=== PATIENT | female | born 1955 | race African-American/Black ===

== ENCOUNTER → 2017-01-12 | Outpatient (CLI) | payer BC ==
[~2017-01-12] MED LIST: BIOT1CAP3 PO; CYAN10005 PO; DICY10CA55 PO; FESO8TAB PO; GLC500 PO; INSUINJ SC; IRON PILL PO; LIRA18IN PO; LUTE1CAP9 PO; MAGN250T3 PO; MULT-506 PO; OLME1TAB11 PO; OMEG10007 PO; OXYC7.5T78 PO; VITA400C15 PO
--- NOTE | 2017-01-12 11:00 | DIAGNOSTIC IMAGING REPORT ---
THYROID ULTRASOUND CLINICAL HISTORY: Lump on neck. COMPARISON STUDY: None. TECHNIQUE: Sonography of the thyroid gland was performed. FINDINGS: The right thyroid lobe measures 5.1 x 1.6 x 1.4 cm and the left lobe measures 5.1 x 1.5 x 1.5 cm. There are no nodules within the right thyroid lobe. Two hypoechoic cystic left lobe nodules measure up to 0.8 cm. The largest is within the midpole. These are likely benign. No mass or enlarged lymph node was identified within the adjacent soft tissues. IMPRESSION: 1. Two subcentimeter left lobe thyroid nodules measuring up to 0.8 cm. While technically indeterminate, these have benign imaging characteristics. 2. No mass or enlarged lymph node within the soft tissues adjacent to the thyroid gland. Electronically signed by: Amrit Beltre M.D. 01/12/2017 10:59 AM Dictated Date/Time: 01/12/2017 10:56 AM
== END | disposition home or self-care (01) ==
LOC: C.ULTRBC 10:05
PROVIDERS: ATTEND Internal Medicine
DX: R22.1 Localized swelling, mass and lump, neck (principal); E04.1 Nontoxic single thyroid nodule

== ENCOUNTER → 2017-02-06 | Outpatient (CLI) | payer BC ==
--- NOTE | 2017-02-06 14:02 | DIAGNOSTIC IMAGING REPORT ---
AP STANDING VIEW OF BOTH KNEES; 3 VIEWS RIGHT KNEE CLINICAL HISTORY: Chronic right knee pain. FINDINGS: An AP standing view of both knees with crosstable lateral, tunnel, and sunrise views of the right knee are compared to study dated 02/09/2015. The skeletal structures are osteopenic. No fracture is seen. There is moderate tricompartmental degenerative joint space narrowing, greatest in the medial and patellofemoral compartments. There are marginal osteophytes, degenerative beaking of the tibial spine, and patellar enthesophytes. No evidence of osteochondral defect is seen on the tunnel view. A calcified fabella is incidentally noted. No joint effusion is seen. The overlying soft tissues are within normal limits. Survey images of the left knee on the frontal view show mild to moderate degenerative narrowing in the medial compartment and small marginal osteophytes. IMPRESSION: Osteopenia and degenerative change as above. No acute bony abnormality is seen in the right knee. Electronically signed by: Chauncey Hsieh M.D. 02/06/2017 2:01 PM Dictated Date/Time: 02/06/2017 1:59 PM
== END | disposition home or self-care (01) ==
LOC: C.RDSM 13:50
PROVIDERS: ATTEND Physical Medicine & Rehabilitation Sports Medicine
DX: M85.861 Other specified disorders of bone density and structure, right lower leg (principal)

== ENCOUNTER → 2017-03-27 | Outpatient (CLI) | payer BC ==
[~2017-03-27] MED LIST changes: +DICL1GEL12 EXT; +INSHNI SC; +LIRA18IN SC; +LOSA1TAB38 PO; +METF-384 PO; +NF656 EXT; +OXYC-59 PO; +OXYC-643 PO; +ZNTT/150 PO
--- NOTE | 2017-03-27 14:12 | DIAGNOSTIC IMAGING REPORT ---
AP STANDING VIEW OF BOTH KNEES; 3 VIEWS RIGHT KNEE CLINICAL HISTORY: Right knee pain and swelling. FINDINGS: An AP standing view of both knees with crosstable lateral, tunnel, and sunrise views of the right knee are compared to study dated 02/06/2017. The skeletal structures are osteopenic. No fracture is seen. There is moderate tricompartmental degenerative joint space narrowing, greatest in the medial and patellofemoral compartments. There are marginal osteophytes, degenerative beaking of the tibial spine, and patellar enthesophytes. No evidence of osteochondral defect is seen on the tunnel view. A calcified fabella is incidentally noted. No joint effusion is seen. The overlying soft tissues are within normal limits. Survey images of the left knee on the frontal view show mild to moderate degenerative narrowing in the medial compartment and small marginal osteophytes. IMPRESSION: Osteopenia and degenerative change as above. No acute bony abnormality is seen in the right knee and there has been no significant change from 02/06/2017. Electronically signed by: Chauncey Hsieh M.D. 03/27/2017 2:11 PM Dictated Date/Time: 03/27/2017 2:09 PM
== END | disposition home or self-care (01) ==
LOC: C.RDSM 13:30
PROVIDERS: ATTEND Physician Assistant
DX: R52 Pain, unspecified (principal)

== ENCOUNTER → 2017-08-28 | Outpatient (CLI) | payer BC ==
[~2017-08-28] MED LIST changes: -DICL1GEL12 EXT; -INSHNI SC; -LIRA18IN SC; -LOSA1TAB38 PO; -METF-384 PO; -NF656 EXT; -OXYC-59 PO; -OXYC-643 PO; -ZNTT/150 PO
--- NOTE | 2017-08-28 15:46 | MAMMOGRAPHY REPORT ---
BILATERAL DIGITAL SCREENING MAMMOGRAM WITH CAD: 08/28/2017 CLINICAL HISTORY: Routine screening. Patient has no complaints. TECHNIQUE: Current study was also evaluated with a Computer Aided Detection (CAD) system. Bilateral CC and MLO views were obtained. COMPARISON: Comparison is made to exams dated: 08/22/2016 mammogram, 08/20/2015 mammogram, 07/21/2014 m ammogram, 07/07/2013 mammogram, 07/05/2012 mammogram, and 07/03/2011 mammogram - [facility]. BREAST COMPOSITION: The tissue of both breasts is almost entirely fatty. FINDINGS: No suspicious masses, calcifications, or areas of architectural distortion are noted in ei ther breast. There has been no significant interval change compared to prior exams. IMPRESSION: ACR BI-RADS CATEGORY 1: NEGATIVE There is no mammographic evidence of malignancy. A 1 year screening mammogram is recommended. The pa tient will receive written notification of the results. Approximately 10% of breast cancers are not detected with mammography. A negative mammographic report should not delay biopsy if a clinically suggestive mass is present. Natalie Haque M.D. ah/:08/28/2017 10:30:36 Search Engine Marketing Strategist: Anamaira NATHR, M, [facility] letter sent: Normal 1/2 BI-RADS Code: ACR BI-RADS Category 1: Negative
== END | disposition home or self-care (01) ==
LOC: C.MAMM 10:07
PROVIDERS: ATTEND Internal Medicine
DX: Z12.31 Encounter for screening mammogram for malignant neoplasm of breast (principal)

== ENCOUNTER → 2017-09-07 | Outpatient (CLI) | payer BC | END | disposition home or self-care (01) | LOC: C.RDSM 13:22 | PROVIDERS: ATTEND Physical Medicine & Rehabilitation Sports Medicine | DX: M25.531 Pain in right wrist (principal) ==

== ENCOUNTER → 2017-11-11 | Day surgery (SDC) | payer BC ==
[2017-10-12 11:43] VITALS: Ht 177.8 cm; Wt 154.6 kg
[~2017-11-11] VITALS: Ht 177.8 cm; Wt 154.6 kg
[~2017-11-11] MED LIST changes: -BIOT1CAP3 PO; +BUPIVACAINE 0.25% 2.5MG/ML PF 10 ML VIAL ONE; -CYAN10005 PO; +DICL1GEL12 EXT; -DICY10CA55 PO; -FESO8TAB PO; -GLC500 PO; +INSHNI SC; -INSUINJ SC; -IRON PILL PO; +LIDOCAINE HCL 1% MPF 5 ML VIAL ONE; -LIRA18IN PO; +LIRA18IN SC; +LOSA1TAB38 PO; -LUTE1CAP9 PO; -MAGN250T3 PO; +METF-384 PO; -MULT-506 PO; +NF656 EXT; -OLME1TAB11 PO; -OMEG10007 PO; +OXYC-59 PO; +OXYC-643 PO; -OXYC7.5T78 PO; -VITA400C15 PO; +ZNTT/150 PO
--- NOTE | 2017-11-11 12:38 | History & Physical Bridge - SC ---
H&P Re-Evaluation Bridge Note: I have examined the patient, reviewed the History & Physical and in the interval since the performance of the History & Physical I have noted the following changes of clinical significance: No changes noted
--- NOTE | 2017-11-11 13:12 | Discharge Instructions ---
Discharge Instructions Date of Service Nov 11, 2017. Visit Reason for Visit: Low Back Pain Discharge Discharge Diagnosis / Problem: low back pain Discharge Goals Goal(s): Decrease discomfort, Improve function Activity Recommendations Activity Limitations: resume your previous activity Anesthesia . Post Anesthesia Instructions: If you have had General Anesthesia or IV Sedation: * Do not drive today. * Resume driving when surgeon permits. * Do not make important decisions or sign legal documents today. * Call surgeon for: 1. Temperature elevations greater than 101 degrees F. 2. Uncontrollable pain. 3. Excessive bleeding. 4. Persistent nausea and vomiting. 5. Medication intolerance (nausea, vomiting or rash). * For nausea and vomiting use only clear liquids such as: tea, soda, bouillon until nausea subsides, then gradually increase diet as tolerated. * If you have any concerns or questions, call your surgeon's office. If physician is unavailable and it is an emergency, call 911 or go to the nearest emergency room. . Diet Recommendations Recommended Home Diet: resume previous diet Procedures Procedures Performed: Right L4-5, L5-S1 Medial Branch Blocks Pending Studies Studies pending at discharge: no Medical Emergencies . Who to Call and When: Medical Emergencies: If at any time you feel your situation is an emergency, please call 911 immediately. . Non-Emergent Contact Non-Emergency issues call your: Specialist . . "Provider Documentation" section prepared by Joseph López. .
[2017-11-11 13:21] VITALS: BP 117/81; PULSE 86; O2SAT 97
--- NOTE | 2017-11-11 14:07 | OPERATIVE REPORT ---
DATE OF OPERATION: 11/11/2017 PREOPERATIVE DIAGNOSES: Chronic low back pain and lumbar facet arthropathy. POSTOPERATIVE DIAGNOSES: Same. PROCEDURE: Right L4-L5 and L5-S1 medial branch facet blocks. INDICATIONS: The patient is a 62-year-old -[place] female who presents today for medial branch blocks. She has chronic low back pain that is localizing to the facet joints. These are felt to be the pain generators and she proceeds with a diagnostic block to determine if indeed this does alleviate or eliminate her pain for an anticipated period of time. PHYSICAL EXAMINATION: Pleasant female seated comfortably. She has point tenderness to palpation on the right side at the L4-L5 and L5-S1 facet region. This is worse with extension and rotation and relieved with forward flexion to the opposite side. She is without any motor or sensory deficits of her lower extremities. CONSENT: Verbal and written consent was obtained from the patient. Risks and benefits were reviewed. Risks include, but are not limited to abscess and allergic reaction. The patient wishes to proceed. DESCRIPTION OF PROCEDURE: The patient was taken back to the special procedures room of the [facility], where she was maintained in a prone position. Backside was cleansed with Betadine x3 and a dry sterile dressing was applied. Fluoroscope was used to identify the right L4 transverse process junction, the right L5 transverse process junction and the right sacral ala. Overlying skin was then anesthetized with 1.5 mL of lidocaine 1% with total 25-gauge 1-1/2 inch needle at each site. A 22-gauge 5-cm spinal needle was then directed at each target, contacting bone at each site and then being injected with 1 mL of 0.25% bupivacaine at each site. Injection was well tolerated. DISPOSITION: 1. The patient was taken out into the discharge recovery area, where she will be discharged home once discharge criteria have been met. 2. Follow up in the [facility] office in 4 weeks' time. She has been asked to keep a pain diary for the next 48 hours to determine how effective the blocks were and far how along. I attest to the content of the Intraoperative Record and any orders documented therein. Any exception s are noted below.
== END | disposition home or self-care (01) ==
LOC: X.SURG 12:14
PROVIDERS: ATTEND Physical Medicine & Rehabilitation
DX: M54.5 Low back pain (principal); G89.29 Other chronic pain; M46.96 Unspecified inflammatory spondylopathy, lumbar region; Z79.899 Other long term (current) drug therapy

== ENCOUNTER → 2017-11-12 | Outpatient (CLI) | payer BC ==
[~2017-11-12] MED LIST changes: -BUPIVACAINE 0.25% 2.5MG/ML PF 10 ML VIAL ONE; -LIDOCAINE HCL 1% MPF 5 ML VIAL ONE; +OPTIRAY 320 IV PRN
--- NOTE | 2017-11-12 12:04 | DIAGNOSTIC IMAGING REPORT ---
CT ABD/PELVIS IV AND ORAL CONT CLINICAL HISTORY: R10.9 MID ABDOMINAL PAIN. DIARRHEA. FAMILY HISTORY OF PANCREATIC CARCINOMA. COMPARISON STUDY: 08/31/2015 TECHNIQUE: Following the IV administration of 93 mL of Optiray-320, CT scan of the abdomen and pelvis was performed from the lung bases to the proximal femurs. Images are reviewed in the axial, sagittal, and coronal planes. IV contrast was administered without complication. A dose lowering technique was utilized adhering to the principles of ALARA. CT DOSE: 1663.76 mGy.cm FINDINGS: Lower chest: The heart is normal in size and configuration, without pericardial effusion. The lung bases and pleural spaces are clear. Liver: There is hepatic steatosis. No focal masses are visualized. Gallbladder: Unremarkable. Spleen: Normal in size and attenuation. Pancreas: Unremarkable. Adrenal glands: Unremarkable. Kidneys: There is symmetric renal cortical enhancement. The kidneys are normal in size without hydronephrosis. Bowel: There are no transition zones indicate bowel obstruction. There is colonic diverticulosis. No acute peridiverticular inflammatory changes are visualized. The appendix appears normal. Peritoneum: There is no intraperitoneal free air or abdominal ascites. Vasculature: The abdominal aorta is normal in course and caliber. Adenopathy: None. Pelvic viscera: The uterus is surgically absent Skeletal structures: No destructive osseous lesions are seen. IMPRESSION: 1. Hepatic steatosis 2. Surgically absent uterus 3. No evidence of bowel obstruction. No evidence of free air 4. No evidence of acute appendicitis. No evidence of acute diverticulitis. 5. No acute inflammatory changes Electronically signed by: Bayron Rao M.D. 11/12/2017 12:03 PM Dictated Date/Time: 11/12/2017 12:00 PM
== END | disposition home or self-care (01) ==
LOC: C.CTS 09:28
PROVIDERS: ATTEND Internal Medicine Gastroenterology
DX: R10.9 Unspecified abdominal pain (principal); K76.0 Fatty (change of) liver, not elsewhere classified; Z90.711 Acquired absence of uterus with remaining cervical stump

== ENCOUNTER → 2017-12-07 | Day surgery (SDC) | payer BC, OTHER ==
[~2017-12-07] VITALS: Ht 177.8 cm; Wt 150.0 kg
[~2017-12-07] MED LIST changes: +ALBU18002 INH; +BIOT1CAP8 PO; +LUTE15CA PO; +MAGNESIUM PO; +MULT-506 PO; -OPTIRAY 320 IV PRN; -OXYC-643 PO; +PRLSR20 PO; +TAMS0.4C38 PO; +VITAMIN B12 PO; +VITAMIN C PO; +VITAMIN E PO; -ZNTT/150 PO
[2017-12-07 08:01] VITALS: BP 137/72; PULSE 92; TEMP 36.8; O2SAT 99; Ht 177.8 cm; Wt 150.0 kg
--- NOTE | 2017-12-09 14:46 | OPERATIVE REPORT ---
DATE OF OPERATION: 12/07/2017 PROCEDURE: Hydrogen breath test for small bowel bacterial overgrowth performed on December 07. DESCRIPTION OF PROCEDURE: The patient presented to the hospital for breath test to determine if she has small bowel bacterial overgrowth. The patient's baseline hydrogen was 0 with a CO2 level of 4.8. The CO2 level remained in the 5 range throughout the duration of the procedure. She was given 10 grams of lactulose. Her 20-minute hydrogen level was 3, 40 minutes was 8, 60 minutes was 15, 80 minutes 19, 100 minutes 28, 120 minutes 33, 140 minutes 51. At this point, she was getting some cramping sensation. IMPRESSION: The patient's hydrogen levels torrie steadily during the course of the procedure. There was no elevation in her baseline prior to taking the lactulose. The elevated hydrogen levels later on and associated symptoms are more consistent with the lactulose intolerance rather than small bowel bacterial overgrowth syndrome. I attest to the content of the Intraoperative Record and any orders documented therein. Any exception s are noted below.
== END | disposition home or self-care (01) ==
LOC: C.MTU 07:53
PROVIDERS: ATTEND Internal Medicine Gastroenterology
DX: R19.7 Diarrhea, unspecified (principal)

== ENCOUNTER → 2017-12-16 | Day surgery (SDC) | payer BC, OTHER ==
[2017-12-01 10:09] VITALS: Ht 177.8 cm; Wt 150.0 kg
[~2017-12-16] VITALS: Ht 177.8 cm; Wt 150.0 kg
--- NOTE | 2017-12-16 13:01 | Endo History and Physical ---
History & Physical Date of Service: Dec 16, 2017. Chief Complaint: Diarrhea Referring Physician: Dr. Waqas Doshi History of Present Illness For colonoscopy Past Surgical History Hx Cardiac Surgery: No Hx Internal Defibrillator: No Hx Pacemaker: No Hx Abdominal Surgery: Yes (HYSTERECTOMY) Hx of Implantable Prosthesis: No Hx Post-Op Nausea and Vomiting: No Hx Cancer Surgery: No Hx Thoracic Surgery: No Hx Orthopedic: Yes (CYST REMOVED FROM LUMBAR 4-5 ) Hx Urinary Tract Surgery: No Family History Colon CA Social History Smoking Status: Never Smoker Hx Substance Use: No Hx Alcohol Use: Yes (1 DRINK WEEKLY) Allergies Coded Allergies: Nitrofurantoin (Verified Allergy, Intermediate, HIVES, 12/01/17) Current Medications Reported Home Medications Medications Dose Route/Sig Max Daily Dose Days Date Category Flomax (Tamsulosin Hcl) 0.4 Mg Cap 0.4 Mg PO DAILY PRN 12/01/17 Reported Proair Respiclick (Albuterol Sulfate) 108 Mcg/Act Aer 2 Puff INH Q4H PRN 12/01/17 Reported Lutein (Lutein-Zeaxanthin) 1 Cap Cap 1 Cap PO DAILY 12/01/17 Reported Biotin 1 Mg Cap 1 Cap PO DAILY 12/01/17 Reported [Magnesium] 1 Tab PO DAILY 12/01/17 Reported [Vitamin E] 1 Tab PO DAILY 12/01/17 Reported [Vitamin C] 1 Tab PO DAILY 12/01/17 Reported [Vitamin B12] 1 Tab PO DAILY 12/01/17 Reported Multivitamin (Multivitamins) Tab 1 Tab PO DAILY 12/01/17 Reported Prilosec (Omeprazole) 20 Mg Capcr 20 Mg PO QAM 12/01/17 Reported Voltaren 1% Top Gel (Diclofenac Sodium (Topical)) 1 % Gel 1 Dose EXT DIRECTED PRN 10/12/17 Reported Percocet 10MG/325MG (Oxycodone/Acetaminophen 10MG/325MG) 1 Tab Tab 1 Tab PO TID PRN 10/12/17 Reported Lidoderm Patch 5% (Lidocaine) 1 Ea Tdsy 1 Dose EXT DAILY PRN 10/12/17 Reported Humulin N (Insulin Human NPH) 100 Units/Ml Susp 23 Units SC HS 10/12/17 Reported Victoza (Liraglutide) 18 Mg/3 Ml Inj 1.2 Units SC QPM 10/12/17 Reported Cozaar (Losartan Potassium) 100 Mg Tab 100 Mg PO QPM 10/12/17 Reported Glucophage (Metformin Hcl) 1,000 Mg Tab 1,000 Mg PO BID 10/12/17 Reported Vital Signs Weight (Kilograms): 150 Height (Feet): 5 Height (Inches): 10 Date Time Temp Pulse Resp B/P (MAP) Pulse Ox O2 Delivery O2 Flow Rate FiO2 12/16/17 12:35 36.8 86 18 159/99 (119) 97 Room Air Physical Exam General Appearance: + obese Respiratory/Chest: Respiratory effort: no dyspnea Cardiovascular: Heart Auscultation: RRR Abdomen: Inspection & Palpation: soft Assessment and Plan Diarrhea for colonoscopy
--- NOTE | 2017-12-16 13:43 | Discharge Instructions ---
Endoscopy Patient Instructions Date / Procedure(s) Performed Dec 16, 2017. Colonoscopy Allergy Information Coded Allergies: Nitrofurantoin (Verified Allergy, Intermediate, HIVES, 12/01/17) Discharge Date / Findings Dec 16, 2017. polyp, diverticulosis Medication Instructions Stopped Medication(s): Patient stopped all of her meds on Thursday, herself. Restart Stopped Medication(s): resume meds Reported Home Medications Medications Dose Route/Sig Max Daily Dose Days Date Category Flomax (Tamsulosin Hcl) 0.4 Mg Cap 0.4 Mg PO DAILY PRN 12/01/17 Reported Proair Respiclick (Albuterol Sulfate) 108 Mcg/Act Aer 2 Puff INH Q4H PRN 12/01/17 Reported Lutein (Lutein-Zeaxanthin) 1 Cap Cap 1 Cap PO DAILY 12/01/17 Reported Biotin 1 Mg Cap 1 Cap PO DAILY 12/01/17 Reported [Magnesium] 1 Tab PO DAILY 12/01/17 Reported [Vitamin E] 1 Tab PO DAILY 12/01/17 Reported [Vitamin C] 1 Tab PO DAILY 12/01/17 Reported [Vitamin B12] 1 Tab PO DAILY 12/01/17 Reported Multivitamin (Multivitamins) Tab 1 Tab PO DAILY 12/01/17 Reported Prilosec (Omeprazole) 20 Mg Capcr 20 Mg PO QAM 12/01/17 Reported Voltaren 1% Top Gel (Diclofenac Sodium (Topical)) 1 % Gel 1 Dose EXT DIRECTED PRN 10/12/17 Reported Percocet 10MG/325MG (Oxycodone/Acetaminophen 10MG/325MG) 1 Tab Tab 1 Tab PO TID PRN 10/12/17 Reported Lidoderm Patch 5% (Lidocaine) 1 Ea Tdsy 1 Dose EXT DAILY PRN 10/12/17 Reported Humulin N (Insulin Human NPH) 100 Units/Ml Susp 23 Units SC HS 10/12/17 Reported Victoza (Liraglutide) 18 Mg/3 Ml Inj 1.2 Units SC QPM 10/12/17 Reported Cozaar (Losartan Potassium) 100 Mg Tab 100 Mg PO QPM 10/12/17 Reported Glucophage (Metformin Hcl) 1,000 Mg Tab 1,000 Mg PO BID 10/12/17 Reported Provider Instructions Activity Restrictions - No exercising or heavy lifting for 24 hours. - Do not drink alcohol the day of the procedure. - Do not drive a car or operate machinery until the day after the procedure. - Do not make any important decisions or sign important papers in 24 hours after the procedure. Following Day: - Return to full activity which may include returning to work/school. Diet Start your diet with liquids and light foods (jello, soup, juice, toast). Then eat your usual diet if not nauseated. Treatment For Common After Affects For mild abdominal pain, bloating, or excessive gas: - Rest - Eat lightly - Lie on right side Follow-Up Information Follow-up with Dr. Waqas Doshi as scheduled Anesthesia Information What You Should Know You have had a procedure that required some medicine to reduce anxiety and discomfort. This treatment is called moderate sedation. After receiving the treatment, you may be sleepy, but you will be able to breathe on your own. The effects of the treatment may last for several hours. Follow these instructions along with Activity/Diet recommendations noted above: * Do NOT do anything where dizziness or clumsiness would be dangerous. * Rest quietly at home today, then you can be up and about tomorrow. * Have a responsible person stay with you the rest of today. * You may have had an I.V. today. If so, you may take the dressing off later today. Recommendations Call your doctor if: * Trouble breathing * Continuous vomiting for more than 24 hours * Temperature above 101 degrees * Severe abdominal pain or bloating * Pain not relieved by pain medicine ordered * There is increased drainage or redness from any incision * A large amount of rectal bleeding greater than 2-3 tablespoons. (If you had a polyp/s removed or have hemorrhoids, a small amount of blood - from the rectum is to be expected.) * You have any unanswered questions or concerns. IN THE EVENT OF A SERIOUS EMERGENCY, GO TO THE NEAREST EMERGENCY ROOM Your discharge instructions were prepared by provider Dayo Heredia. Patient Instructions Signature Page Mary Flores Patient (or Guardian) Signature/Date: I have read and understand the instructions given to me by my caregivers. Caregiver/RN/Doctor Signature/Date: The above-named patient and/or guardian has received patient instructions on this date. + Original Patient Signature Page (only) stays with chart. Please make copy for patient.
--- NOTE | 2017-12-16 13:52 | GI REPORT ---
Procedure Date: 12/16/2017 12:50 PM Procedure: Colonoscopy Indications: Clinically significant diarrhea of unexplained origin Medicines: Propofol total dose 440 mg IV, Lidocaine 40 mg IV Complications: No immediate complications. Estimated Blood Loss: Estimated blood loss was minimal. Procedure: Pre-Anesthesia Assessment: - Prior to the procedure, a History and Physical was performed, and patient medications, allergies and sensitivities were reviewed. The patient's tolerance of previous anesthesia was reviewed. - The risks and benefits of the procedure and the sedation options and risks were discussed with the patient. All questions were answered and informed consent was obtained. After I obtained informed consent, the scope was passed under direct vision. Throughout the procedure, the patient's blood pressure, pulse, and oxygen saturations were monitored continuously. The scope was introduced through the anus and advanced to the terminal ileum. The colonoscopy was performed without difficulty. The patient tolerated the procedure well. The colonoscopy was somewhat difficult due to significant looping. Successful completion of the procedure was aided by applying abdominal pressure. The patient tolerated the procedure well. The quality of the bowel preparation was excellent. Findings: The terminal ileum appeared normal. A few diverticula were found in the sigmoid colon. A 4 mm polyp was found at 20 cm proximal to the anus. The polyp was sessile. The polyp was removed with a cold snare. Resection and retrieval were complete. Estimated blood loss was minimal. Normal mucosa was found in the entire colon. Biopsies for histology were taken with a cold forceps from the ascending colon, transverse colon and descending colon for evaluation of microscopic colitis. Estimated blood loss was minimal. Impression: - The examined portion of the ileum was normal. - Diverticulosis in the sigmoid colon. - One 4 mm polyp at 20 cm proximal to the anus, removed with a cold snare. Resected and retrieved. - Normal mucosa in the entire examined colon. Biopsied. Recommendation: - Discharge patient to home (ambulatory). - Continue present medications. - Await pathology results. - Return to GI office as previously scheduled. Dayo Heredia M.D. Dayo Heredia MD 12/16/2017 1:52:13 PM This report has been signed electronically. Note Initiated On: 12/16/2017 12:50 PM I attest to the content of the Intraoperative Record and orders documented therein, exceptions below
[2017-12-16 14:00] VITALS: BP 153/74; PULSE 79; O2SAT 99
--- NOTE | 2017-12-16 14:08 | Anesthesiology Progress Note ---
Anesthesia Post Op Note Date & Time Dec 16, 2017 at 14:08 Vital Signs Pain Intensity: 0 Vital Signs Past 12 Hours Date Time Temp Pulse Resp B/P (MAP) Pulse Ox O2 Delivery O2 Flow Rate FiO2 12/16/17 14:00 79 18 153/74 (100) 99 Room Air 12/16/17 13:45 96 18 122/78 (93) 98 Room Air 12/16/17 12:35 36.8 86 18 159/99 (119) 97 Room Air Notes Mental Status: alert / awake / arousable, participated in evaluation Pt Amnestic to Procedure: Yes Nausea / Vomiting: adequately controlled Pain: adequately controlled Airway Patency, RR, SpO2: stable & adequate BP & HR: stable & adequate Hydration State: stable & adequate Anesthetic Complications: no major complications apparent
== END | disposition home or self-care (01) ==
LOC: C.GI 12:10
PROVIDERS: ATTEND Internal Medicine Gastroenterology
DX: R19.7 Diarrhea, unspecified (principal); D12.9 Benign neoplasm of anus and anal canal; K57.30 Diverticulosis of large intestine without perforation or abscess without bleeding; Z80.0 Family history of malignant neoplasm of digestive organs; Z79.899 Other long term (current) drug therapy; Z79.84 Long term (current) use of oral hypoglycemic drugs

== ENCOUNTER → 2018-01-25 | Outpatient (CLI) | payer OTHER | END | disposition home or self-care (01) | LOC: C.RDSM 16:54 | PROVIDERS: ATTEND Physical Medicine & Rehabilitation Sports Medicine | DX: M25.561 Pain in right knee (principal) ==

== ENCOUNTER → 2018-01-28 | Outpatient (CLI) | payer OTHER ==
[~2018-01-28] MED LIST changes: +GADAVIST IV PRN
--- NOTE | 2018-01-28 21:45 | DIAGNOSTIC IMAGING REPORT ---
LOWER EXT NONJOINT COMBO HISTORY: 63 years-old Female R22.41, LOCALIZED SWELLING MASS AND LUMP RT LOWER LIMB acute focal swelling with palpable abnormality of the right lower extremity. Skin marker placed at site of concern. COMPARISON: Right knee radiographs of same day TECHNIQUE: Multiplanar multisequence MRI of the right lower extremity was obtained both with and without the use of 14.5 mL Gadavist FINDINGS: The large ibrmo-nz-ccam digital librarian localizer images demonstrate no gross abnormality. Study is not tailored to assess the intrinsic structures about the knee. There is mild edema-like marrow signal noted within the medial tibial plateau, image 21 series 11. Bone marrow signal is otherwise unremarkable without acute fracture, stress response or focal lesion identified. The imaged Achilles tendon appears intact. Flexor and extensor tendons about the lower leg also appear intact. There is a skin marker noted about the posterior lateral distal portion of the lower leg adjacent to the distal Soleus musculature where there is a focal apparent myofascial defect with outpouching of the Soleus musculature measuring up to 10 mm in length, image 38 series 13 with minimal subcutaneous edema noted inferiorly to this area. Incomplete fat saturation is noted within this region on the postcontrast fat-saturated T1 images. No definite focal enhancement identified within this region. No enhancing mass lesions. There is mild atrophy involving the musculature of the lower leg. IMPRESSION: 1. Skin marker noted about the posterior lateral distal lower leg adjacent to the distal Soleus musculature where there is an apparent focal myofascial defect with small herniation of the Soleus musculature likely accounting for the area of palpable concern. Minimal associated subcutaneous edema is likely reactive. No enhancing mass lesions. 2. Partially imaged mild edema-like marrow signal of the medial tibial plateau is likely degenerative in nature. Imaging of the knee could be considered if clinically indicated. 3. No focal bone marrow edema, fracture or stress response of the lower leg. The above report was generated using voice recognition software. It may contain grammatical, syntax or spelling errors. Electronically signed by: Pancho Grey M.D. 01/28/2018 9:44 PM Dictated Date/Time: 01/28/2018 8:49 PM
== END | disposition home or self-care (01) ==
LOC: C.MRI 18:29
PROVIDERS: ATTEND Physical Medicine & Rehabilitation Sports Medicine
DX: R22.41 Localized swelling, mass and lump, right lower limb (principal)

== ENCOUNTER → 2018-02-03 | Day surgery (SDC) | payer OTHER ==
[2017-12-25 13:53] VITALS: Ht 177.8 cm; Wt 150.0 kg
[~2018-02-03] VITALS: Ht 177.8 cm; Wt 150.0 kg
[~2018-02-03] MED LIST changes: +BUPIVACAINE 0.25% 2.5MG/ML PF 10 ML VIAL ONE; -GADAVIST IV PRN; +LIDOCAINE HCL 1% 20 ML VIAL ONE
--- NOTE | 2018-02-03 14:33 | [facility] Post Operative Brief Note ---
Immediate Operative Summary Operative Date Feb 03, 2018. Pre-Operative Diagnosis Right L4-L5 and L5-S1 facet arthropathy, chronic low back pain Post-Operative Diagnosis Same as pre-op Procedure(s) Performed Right L4-5 And L5-S1 Radio Frequency Denervation Surgeon Access Representative Surgeon(s) None Estimated Blood Loss Zero Findings Consistent with Post-Op Diagnosis Specimens None Drains None Anesthesia Type Local Complication(s) none Disposition Disposition:
--- NOTE | 2018-02-03 14:35 | Discharge Instructions ---
Discharge Instructions Date of Service Feb 03, 2018. Visit Reason for Visit: Low Back Pain Discharge Discharge Diagnosis / Problem: low back pain Discharge Goals Goal(s): Decrease discomfort, Improve function Activity Recommendations Activity Limitations: resume your previous activity Anesthesia . Post Anesthesia Instructions: If you have had General Anesthesia or IV Sedation: * Do not drive today. * Resume driving when surgeon permits. * Do not make important decisions or sign legal documents today. * Call surgeon for: 1. Temperature elevations greater than 101 degrees F. 2. Uncontrollable pain. 3. Excessive bleeding. 4. Persistent nausea and vomiting. 5. Medication intolerance (nausea, vomiting or rash). * For nausea and vomiting use only clear liquids such as: tea, soda, bouillon until nausea subsides, then gradually increase diet as tolerated. * If you have any concerns or questions, call your surgeon's office. If physician is unavailable and it is an emergency, call 911 or go to the nearest emergency room. . Diet Recommendations Recommended Home Diet: resume previous diet Procedures Procedures Performed: Right L4-5 And L5-S1 Radio Frequency Denervation Pending Studies Studies pending at discharge: no Medical Emergencies . Who to Call and When: Medical Emergencies: If at any time you feel your situation is an emergency, please call 911 immediately. . Non-Emergent Contact Non-Emergency issues call your: Specialist . . "Provider Documentation" section prepared by Joseph López. .
[2018-02-03 14:58] VITALS: BP 168/88; PULSE 84; O2SAT 100
--- NOTE | 2018-02-03 15:10 | OPERATIVE REPORT ---
DATE OF OPERATION: 02/03/2018 PREOPERATIVE DIAGNOSIS: Right L4-L5 facet arthropathy with chronic low back pain. POSTOPERATIVE DIAGNOSIS: Same. PROCEDURE: Right L4-L5 and L5-S1 facet radiofrequency denervation. INDICATIONS: The patient is a 63-year-old white female, who presents today for a denervation procedure. She had medial branch blocks done that were very successful in relieving her pain, greater than 80%-90% pain relief for a limited period of time. She presents today for denervation to provide her similar results for a longer time period, ten months to a year. PHYSICAL EXAMINATION: GENERAL: Pleasant female seated comfortably. MUSCULOSKELETAL: Lumbar paraspinal muscles were palpated and noted be nontender. Facet areas were palpated. They were sore, little bit worse with extension and extension rotation. Negative seated straight leg raises. CONSENT: Verbal and written consent was obtained from the patient. Risks and benefits were reviewed. Risks include, but are not limited to epidural abscess, epidural hematoma, allergic reaction, and dural puncture. The patient wishes to proceed. DESCRIPTION OF PROCEDURE: The patient was taken back to the special procedures room of the [facility], where she was maintained in a prone position. Backside was cleansed with Betadine x3 and a dry sterile dressing was applied. Fluoroscope was used to identify the L4 transverse process on the right, L5 transverse process on the right and the right sacral ala. The overlying skin was anesthetized with 2 mL of lidocaine 1% with a 25-gauge 1-1/2 inch needle at each site. A 22-gauge 10-cm Colt needle contacted the bony targets at each site. It was on the skin hub, but contacting bone. Sensory stimulation provoked findings of 0.2 volts at L4, 0.2 at L5 and 0.3 at the sacral ala. Motor stimulation provoked robust paraspinal spasms at L4, less so at L5 and minimally at the sacral ala. Nothing was provoked down the leg or in the calf and the foot. She then underwent denervation 80 degrees 100 seconds x2 at each site after being anesthetized with 1 mL lidocaine 1% at each site and then following the denervation, underwent bupivacaine 0.25% 1 mL at each site. The procedure was well tolerated. DISPOSITION: 1. The patient was taken out into the discharge recovery area, where she will be discharged home once discharge criteria have been met. 2. Follow up in the [facility] office in 4 weeks' time. I attest to the content of the Intraoperative Record and any orders documented therein. Any exception s are noted below.
== END | disposition home or self-care (01) ==
LOC: X.SURG 12:58
PROVIDERS: ATTEND Physical Medicine & Rehabilitation
DX: M54.5 Low back pain (principal); M12.88 Other specific arthropathies, not elsewhere classified, other specified site; Z79.899 Other long term (current) drug therapy; Z79.4 Long term (current) use of insulin

== ENCOUNTER → 2018-04-01 | Outpatient (CLI) | payer OTHER ==
[~2018-04-01] MED LIST changes: -BUPIVACAINE 0.25% 2.5MG/ML PF 10 ML VIAL ONE; -LIDOCAINE HCL 1% 20 ML VIAL ONE
--- NOTE | 2018-04-01 16:09 | DIAGNOSTIC IMAGING REPORT ---
[facility] CLINICAL HISTORY: 63 years-old Female presenting with R10.9 right flank pain, history of right nephrolithiasis. TECHNIQUE: Single supine view of the abdomen was obtained. COMPARISON: CT from 11/12/2017 and plain radiograph of the abdomen from 10/02/2016. FINDINGS: Nonobstructive bowel gas pattern. Mild stool burden in the right colon. No gross pneumoperitoneum. Allowing for bowel gas and stool, no calcifications to suggest nephrolithiasis. Stable distribution of pelvic phleboliths. Degenerative changes of the spine. Lung bases clear. IMPRESSION: 1. No radiographic evidence of renal or ureteral calculi. Electronically signed by: Amadou Soria M.D. 04/01/2018 4:07 PM Dictated Date/Time: 04/01/2018 4:05 PM
== END | disposition home or self-care (01) ==
LOC: C.RAD 15:20
PROVIDERS: ATTEND Nurse Practitioner Family
DX: R10.9 Unspecified abdominal pain (principal)

== ENCOUNTER → 2018-04-14 | Outpatient (CLI) | payer OTHER ==
[~2018-04-14] MED LIST changes: -OXYC-59 PO; +OXYC10TA2 PO
--- NOTE | 2018-04-14 10:58 | DIAGNOSTIC IMAGING REPORT ---
RENAL ULTRASOUND HISTORY: N20.0 Nephrolithiasis COMPARISON: [facility] 04/01/2018. Abdomen and pelvis CT 11/12/2017. FINDINGS: Right kidney: 12 cm. No hydronephrosis. Normal corticomedullary differentiation and cortical thickness. Left kidney: 12 cm. No hydronephrosis. Normal corticomedullary differentiation and cortical thickness. Bladder: No bladder wall thickening. The bilateral ureteral jets were identified. IMPRESSION: Normal renal ultrasound. Electronically signed by: Jose Figueroa M.D. 04/14/2018 10:56 AM Dictated Date/Time: 04/14/2018 10:55 AM
== END | disposition home or self-care (01) ==
LOC: C.ULTR 10:17
PROVIDERS: ATTEND Nurse Practitioner Family
DX: N20.0 Calculus of kidney (principal)

== ENCOUNTER 2020-01-16 05:14 | Observation (INO) ==
--- NOTE | 2019-12-26 08:43 | PAT Medication Instructions ---
Medication Instructions Date of Service December 26, 2019 Home Medications Medication Instructions Recorded pen needle, diabetic 31 gauge x #90 ea 07/05/1904/07" insulin syringe-needle U-100 0.5 #100 ea 07/07/19 mL 31 gauge x 04/07" blood sugar diagnostic #180 ea 09/22/19 blood-glucose meter #1 ea 09/22/19 lancets #200 ea 09/22/19 lancets #200 ea 09/23/19 oxycodone-acetaminophen 5 mg-325 1 tab PO Q6H PRN #28 tab 09/23/19 mg tablet metformin 1,000 mg tablet 1,000 mg PO BID omeprazole 20 mg capsule,delayed release 20 mg PO QAM cyanocobalamin (vitamin B-12) 100 mcg tablet 100 mcg PO DAILY albuterol sulfate 90 mcg/actuation aerosol inhaler 1 - 2 puffs INHALATION Q4H PRN insulin NPH isoph U-100 human 100 unit/mL subcutaneous suspension 25 units SUBCUT HS oxycodone-acetaminophen 5 mg-325 mg tablet 1 tab PO Q6H PRN diclofenac sodium 1 % topical gel 4 gm TOP QID PRN diphenhydramine HCl 25 mg capsule 25 mg PO TID PRN fexofenadine 180 mg tablet 180 mg PO UD PRN hydrocortisone 1 %-iodoquinol 1 % topical cream 1 appln TOP TID lidocaine 5 % topical patch 1 patch TOP UD PRN olmesartan 20 mg tablet 20 mg PO QPM omega-3 fatty acids 1,250 mg capsule 1,250 mg PO DAILY liraglutide [Victoza 3-Sylvester] 1.2 mg SQ QPM Continue as directed lidocaine 5 % topical patch 1 patch TOP UD PRN (okay to continue use but avoid placement over surgery site area prior to surgery) STOP taking 2 weeks before surgery (or as soon as possible if surgery is within 2 weeks) omega-3 fatty acids 1,250 mg capsule 1,250 mg PO DAILY STOP taking 24 hours before surgery hydrocortisone 1 %-iodoquinol 1 % topical cream 1 appln TOP TID DO NOT take the morning of surgery metformin 1,000 mg tablet 1,000 mg PO BID cyanocobalamin (vitamin B-12) 100 mcg tablet 100 mcg PO DAILY diphenhydramine HCl 25 mg capsule 25 mg PO TID PRN fexofenadine 180 mg tablet 180 mg PO UD PRN Take morning of surgery With a small sip of water, OTHERWISE NOTHING TO EAT OR DRINK AFTER MIDNIGHT: omeprazole 20 mg capsule,delayed release 20 mg PO QAM albuterol sulfate 90 mcg/actuation aerosol inhaler 1 - 2 puffs INHALATION Q4H PRN (use if needed; please bring with you to hospital day of surgery if possible) oxycodone-acetaminophen 5 mg-325 mg tablet 1 tab PO Q6H PRN (okay to take up to 4 hours prior to surgery if needed) Take evening before surgery metformin 1,000 mg tablet 1,000 mg PO BID albuterol sulfate 90 mcg/actuation aerosol inhaler 1 - 2 puffs INHALATION Q4H PRN (if needed) insulin NPH isoph U-100 human 100 unit/mL subcutaneous suspension 25 units SUBCUT HS oxycodone-acetaminophen 5 mg-325 mg tablet 1 tab PO Q6H PRN (if needed) diphenhydramine HCl 25 mg capsule 25 mg PO TID PRN (if needed) fexofenadine 180 mg tablet 180 mg PO UD PRN (if needed) olmesartan 20 mg tablet 20 mg PO QPM liraglutide [Victoza 3-Sylvester] 1.2 mg SQ QPM Other Notes If you have any questions please call us at [phone] or [phone] or or [phone]
--- NOTE | 2019-12-26 12:40 | PAT Medication Instructions ---
Medication Instructions Date of Service December 26, 2019 Home Medications Medication Instructions Recorded pen needle, diabetic 31 gauge x #90 ea 07/05/1904/07" insulin syringe-needle U-100 0.5 #100 ea 07/07/19 mL 31 gauge x 04/07" blood sugar diagnostic #180 ea 09/22/19 blood-glucose meter #1 ea 09/22/19 lancets #200 ea 09/22/19 lancets #200 ea 09/23/19 oxycodone-acetaminophen 5 mg-325 1 tab PO Q6H PRN #28 tab 09/23/19 mg tablet metformin 1,000 mg tablet 1,000 mg PO BID omeprazole 20 mg capsule,delayed release 20 mg PO QAM cyanocobalamin (vitamin B-12) 100 mcg tablet 100 mcg PO DAILY albuterol sulfate 90 mcg/actuation aerosol inhaler 1 - 2 puffs INHALATION Q4H PRN insulin NPH isoph U-100 human 100 unit/mL subcutaneous suspension 25 units SUBCUT HS oxycodone-acetaminophen 5 mg-325 mg tablet 1 tab PO Q6H PRN diclofenac sodium 1 % topical gel 4 gm TOP QID PRN diphenhydramine HCl 25 mg capsule 25 mg PO TID PRN fexofenadine 180 mg tablet 180 mg PO UD PRN hydrocortisone 1 %-iodoquinol 1 % topical cream 1 appln TOP TID lidocaine 5 % topical patch 1 patch TOP UD PRN olmesartan 20 mg tablet 20 mg PO QPM omega-3 fatty acids 1,250 mg capsule 1,250 mg PO DAILY liraglutide [Victoza 3-Sylvester] 1.2 mg SQ QPM DO NOT take the morning of surgery metformin 1,000 mg tablet 1,000 mg PO BID cyanocobalamin (vitamin B-12) 100 mcg tablet 100 mcg PO DAILY diphenhydramine HCl 25 mg capsule 25 mg PO TID PRN fexofenadine 180 mg tablet 180 mg PO UD PRN Take morning of surgery With a small sip of water, OTHERWISE NOTHING TO EAT OR DRINK AFTER MIDNIGHT: metformin 1,000 mg tablet 1,000 mg PO BID omeprazole 20 mg capsule,delayed release 20 mg PO QAM cyanocobalamin (vitamin B-12) 100 mcg tablet 100 mcg PO DAILY albuterol sulfate 90 mcg/actuation aerosol inhaler 1 - 2 puffs INHALATION Q4H PRN insulin NPH isoph U-100 human 100 unit/mL subcutaneous suspension 25 units SUBCUT HS oxycodone-acetaminophen 5 mg-325 mg tablet 1 tab PO Q6H PRN (if needed, may be taken up to four hours before surgery) Take evening before surgery metformin 1,000 mg tablet 1,000 mg PO BID albuterol sulfate 90 mcg/actuation aerosol inhaler 1 - 2 puffs INHALATION Q4H PRN (if needed) insulin NPH isoph U-100 human 100 unit/mL subcutaneous suspension 25 units SUBCUT HS oxycodone-acetaminophen 5 mg-325 mg tablet 1 tab PO Q6H PRN (if needed) diphenhydramine HCl 25 mg capsule 25 mg PO TID PRN (if needed) fexofenadine 180 mg tablet 180 mg PO UD PRN (if needed) olmesartan 20 mg tablet 20 mg PO QPM liraglutide [Victoza 3-Sylvester] 1.2 mg SQ QPM Other Notes If you have any questions please call us at [phone] or [phone] or [phone] or [phone]
--- NOTE | 2019-12-27 09:00 | Anesthesiology Consultation ---
Date of Service December 27, 2019 Assessment & Plan (1) Encounter for pre-operative examination: - Check BSG AM DOS Chart Review Chart Review: Acceptable Risk for Surgery and Patient seen in Pre Admission Testing Teaching & Discussion Pre-Anesthesia Teaching/Discussion Notes: Instructed NPO after midnight before surgery,except medications with 15 cc of water. Medication instructions provided according to the PAT guidelines. History Surgery Operation Date: 01/16/20 07:00 Proposed Procedures p Laparoscopic Cholecystectomy - Osmany Houston MD, FACS Height/Weight Height: 5 ft 9.5 in Weight: 142 kg Allergies Allergy/AdvReac Type Severity Reaction Status Date / Time nitrofurantoin Allergy Unknown HIVES Verified 12/21/19 10:11 Medications Home Medications Medication Instructions Recorded Confirmed Last Taken metformin 1,000 mg tablet 1,000 mg PO BID #180 tab 07/01/19 12/21/19 Unknown omeprazole 20 mg capsule,delayed 20 mg PO QAM #1 cap 07/01/19 12/21/19 Unknown release cyanocobalamin (vitamin B-12) 100 100 mcg PO DAILY 07/05/19 12/21/19 Unknown mcg tablet pen needle, diabetic 31 gauge x #90 ea 07/05/19 08/18/19 Unknown 04/07" insulin syringe-needle U-100 0.5 #100 ea 07/07/19 08/18/19 Unknown mL 31 gauge x 16" albuterol sulfate 90 mcg/actuation 1 - 2 puffs INHALATION Q4H PRN #1 07/19/19 12/21/19 Unknown aerosol inhaler gm insulin NPH isoph U-100 human 100 25 units SUBCUT HS #3 ml 07/20/19 12/21/19 Unknown unit/mL subcutaneous suspension blood sugar diagnostic #180 ea 09/22/19 Unknown blood-glucose meter #1 ea 09/22/19 Unknown lancets #200 ea 09/22/19 Unknown lancets #200 ea 09/23/19 Unknown oxycodone-acetaminophen 5 mg-325 1 tab PO Q6H PRN #28 tab 09/23/19 12/21/19 Unknown mg tablet diclofenac sodium 1 % topical gel 4 gm TOP QID PRN 12/08/19 12/21/19 Unknown diphenhydramine HCl 25 mg capsule 25 mg PO TID PRN 12/08/19 12/21/19 Unknown fexofenadine 180 mg tablet 180 mg PO UD PRN 12/08/19 12/21/19 Unknown hydrocortisone 1 %-iodoquinol 1 % 1 appln TOP TID 12/08/19 12/21/19 Unknown topical cream lidocaine 5 % topical patch 1 patch TOP UD PRN 12/08/19 12/21/19 Unknown olmesartan 20 mg tablet 20 mg PO QPM 12/08/19 12/21/19 Unknown omega-3 fatty acids 1,250 mg 1,250 mg PO DAILY 12/08/19 12/21/19 Unknown capsule liraglutide [Victoza 3-Sylvester] 1.2 mg SQ QPM 12/21/19 12/21/19 Unknown Past Medical History Medical History Anemia hx iron deficiency/iron infusion (years ago) Asthma, mild intermittent per records, rare inhaler use years ago Back problem chronic Bone spur r/l knee s/p injection 10/2019 Diabetes IDDM (+ injectable/oral meds) Gastrointestinal problem + reflux/well controlled Hiatal hernia (Acute) History of blood clots R/L DVT post-op (years ago) History of urinary tract infection most recent Fall 2018 Hypercholesterolemia Hypertension IBS (irritable bowel syndrome) Morbid obesity Nephrolithiasis hx Yeast infection hx recurrent yeast infections, abdominal skin folds (most recent early 11/2019) Exercise / Class Metabolic Activity III < 4 Walking/Shop/Light housework Past Family History Family History Mother Diabetes Hypertension Heart disease Father Hypertension Cancer Heart disease Past Surgical History Surgical History H/O lumbosacral spine surgery CYST REMOVED H/O: hysterectomy History of colonoscopy History of endoscopy History of hemorrhoidectomy History of toe surgery L BIG TOE Hx of LASIK Past Anesthesia History No Family Hx of Anesthesia Complications and Other (*post-op jaw pain/tooth soreness*) History of PONV No Hx of PONV and No Hx of Motion Sickness Social History Smoking Status: Never smoker Do You Dip or Chew Tobacco: No Hx Alcohol Use: No Hx Substance Use: No substance use type: does not use Review of Systems Reflux controlled. Patient denies chest pain, shortness of breath, cough, wheezing, palpitations. Physical Exam Vital Signs VITALS BP 150/89 P 86 TEMP 98.6 SP02 98%RA RESP 18 PHYSICAL Full neck and c-spine range of motion. Full TMJ range of motion. TMD 4 finger breaths Mallampati Score 1 Dentition: upper front cap/crown Lungs: clear throughout to auscultation Cardiac: regular rate and rhythm, no murmurs noted Spine: normal Carotid arteries: negative bruit Skin: RLQ mild irritation under abdominal skin fold- yeast appearance (per patient, hx recurrent yeast infections being treated with prescription ointment)- surgeon office made aware Extremities: no edema Testing Laboratory Results 12/27/19 09:52 Hemoglobin A1c 7.1 % (4.5-5.6) H 12/27/19 09:52 12/27/19 SODIUM 141 POTASSIUM 4.4 CHLORIDE 108 CO2 30 BUN 14 CREATININE 0.80 GLUCOSE 117 Electrocardiogram Date: 12/27/19 SR with marked sinus arrhythmia at 74bpm. Stress Test Date: 05/07/16 Type: exercise Negative exercise stress EKG/ECHO for ischemia at 91% MPHR. No EKG changes. 4.6 METS. EF 55-60%. Mild cLVH. No significant valvular disease.
[2019-12-27 11:24] LABS: Basophils # (auto) 0.01 K/uL (0-0.2); Basophils % (auto) 0.2 %; Eosinophils # (auto) 0.07 K/uL (0-0.5); Eosinophils % (auto) 1.3 %; Hematocrit (blood only) 38.1 % (37-47); Hemoglobin 12.2 g/dL (12.0-16.0); Immature Granulocytes # (auto) 0.01 K/uL (0.00-0.02); Immature Granulocytes % (auto) 0.2 %; Lymphocytes # (auto) 2.02 K/uL (1.2-3.4); Lymphocytes % (auto) 37.5 %; Mean Corpuscular Hemoglobin 31.6 pg (25-34); Mean Corpuscular Volume 98.7 fL (80-100); Mean Platelet Volume 10.3 fL (7.4-10.4); Monocytes % (auto) 9.3 %; Neutrophils # (auto) 2.77 K/uL (1.4-6.5); Neutrophils % (auto) 51.5 %; Platelet Count 252 K/uL (130-400); RDW Coefficient of Variation 12.9 % (11.5-14.5); RDW Standard Deviation 46.2 fL (36.4-46.3); Red Blood Count 3.86 M/uL (4.2-5.4); White Blood Count 5.38 K/uL (4.8-10.8)
[2019-12-27 11:47] LABS: Estimated Average Glucose 157 mg/dl; Hemoglobin A1C 7.1 % (4.5-5.6)
--- NOTE | 2019-12-27 12:36 | Electrocardiogram Report ---
Test Reason : Blood Pressure : / mmHG Vent. Rate : 074 BPM Atrial Rate : 074 BPM P-R Int : 164 ms QRS Dur : 084 ms QT Int : 372 ms P-R-T Axes : 073 061 039 degrees QTc Int : 412 ms Sinus rhythm with marked sinus arrhythmia Otherwise normal ECG When compared with ECG of 27-JUL-2012 11:10, Premature atrial complexes are no longer Present Confirmed by Waqas Watt ([id number]) on 12/27/2019 12:36:19 PM Referred By: Osmany Houston Confirmed By:Waqas Watt
[2020-01-16] MEDS ORDERED: LR 15ML/HR IV SCH (06:00)
[2020-01-16] MEDS ORDERED: cefUROXime 1,500 MG in DEXTROSE 5% 100 ML IV SCH (06:00)
[2020-01-16] MEDS ORDERED: LIDOCAINE HCL 2% 2 ML VIAL/AMP(20MG/ML) INFIL ONE (06:28)
[2020-01-16] MEDS ORDERED: DEXAMETHASONE SOD INJ 4 MG/ML VIAL ONE ×2 (06:28→07:30)
[2020-01-16] MEDS ORDERED: GLYCOPYRROLATE 0.2 MG/ML VIAL ONE ×2 (06:28→06:39)
[2020-01-16] MEDS ORDERED: NEOSTIGMINE METHYLSULFATE 5 MG/5 ML SYR ONE (06:28)
[2020-01-16] MEDS ORDERED: PROPOFOL IV EMULSION 10 MG/ML 20 ML VIAL IV ONE (06:28)
[2020-01-16] MEDS ORDERED: ONDANSETRON INJ 2 MG/ML 2 ML VIAL ONE (06:28)
[2020-01-16] MEDS ORDERED: fentaNYL citrate 100 MCG/2 ML VIAL ONE (06:29)
[2020-01-16] MEDS ORDERED: MIDAZOLAM HCL 1 MG/ML 2ML VIAL ONE (06:29)
--- NOTE | 2020-01-16 06:39 | History & Physical Report ---
Date of Service January 16, 2020 Assessment & Plan (1) Biliary colic: We are planning to proceed with laparoscopic cholecystectomy. She does understand this may not alleviate all of her problems and symptoms This will be at [facility] with likely observation History of Present Illness Primary Care Provider: Waqas Doshi MD Patient is a 64-year-old female patient of Dr. Heredia Who has been having right upper quadrant pain with recurrence for some time She has undergone multiple studies including EGD, colonoscopy, and ultrasound which were all negative She also underwent HIDA scan showed an ejection fraction of 88% There is some feeling that she may have a hyperactive gallbladder causing biliary colic Allergies Allergy/AdvReac Type Severity Reaction Status Date / Time nitrofurantoin Allergy Unknown HIVES Verified 01/16/20 05:42 Home Medications Home Medications Medication Instructions Recorded Confirmed Type metformin 1,000 mg tablet 1,000 mg PO BID #180 tab 07/01/19 01/16/20 History omeprazole 20 mg capsule,delayed 20 mg PO QAM #1 cap 07/01/19 01/16/20 History release cyanocobalamin (vitamin B-12) 100 100 mcg PO DAILY 07/05/19 01/16/20 History mcg tablet pen needle, diabetic 31 gauge x #90 ea 07/05/19 08/18/19 Rx 5/16" insulin syringe-needle U-100 0.5 #100 ea 07/07/19 08/18/19 Rx mL 31 gauge x 5/16" albuterol sulfate 90 mcg/actuation 1 - 2 puffs INHALATION Q4H PRN #1 07/19/19 01/16/20 History aerosol inhaler gm blood sugar diagnostic #180 ea 09/22/19 Rx blood-glucose meter #1 ea 09/22/19 Rx lancets #200 ea 09/22/19 Rx lancets #200 ea 09/23/19 Rx oxycodone-acetaminophen 5 mg-325 1 tab PO Q6H PRN #28 tab 09/23/19 01/16/20 Rx mg tablet diclofenac sodium 1 % topical gel 4 gm TOP QID PRN 12/08/19 01/16/20 History diphenhydramine HCl 25 mg capsule 25 mg PO TID PRN 12/08/19 01/16/20 History fexofenadine 180 mg tablet 180 mg PO UD PRN 12/08/19 01/16/20 History hydrocortisone 1 %-iodoquinol 1 % 1 appln TOP TID 12/08/19 01/16/20 History topical cream lidocaine 5 % topical patch 1 patch TOP UD PRN 12/08/19 01/16/20 History olmesartan 20 mg tablet 20 mg PO QPM 12/08/19 01/16/20 History omega-3 fatty acids 1,250 mg 1,250 mg PO DAILY 12/08/19 01/16/20 History capsule liraglutide 0.6 mg/0.1 mL (18 mg/3 1.2 mg SQ QPM #9 ml 01/03/20 01/16/20 Rx mL) subcutaneous pen injector insulin NPH isoph U-100 human 100 25 units SUBCUT DAILY #30 ml 01/04/20 01/16/20 Rx unit/mL subcutaneous suspension Past Med/Surg History Medical History Anemia hx iron deficiency/iron infusion (years ago) Asthma, mild intermittent per records, rare inhaler use years ago Back problem chronic Bone spur r/l knee s/p injection 10/2019 Diabetes IDDM (+ injectable/oral meds) Gastrointestinal problem + reflux/well controlled Hiatal hernia (Acute) History of blood clots R/L DVT post-op (years ago) History of urinary tract infection most recent Fall 2018 Hypercholesterolemia Hypertension IBS (irritable bowel syndrome) Morbid obesity Nephrolithiasis hx Yeast infection hx recurrent yeast infections, abdominal skin folds (most recent early 11/2019) Surgical History H/O lumbosacral spine surgery CYST REMOVED H/O: hysterectomy History of colonoscopy History of endoscopy History of hemorrhoidectomy History of toe surgery L BIG TOE Hx of LASIK Family History Mother Diabetes Hypertension Heart disease Father Hypertension Cancer Heart disease Social History (Updated 12/08/19 @ 09:31 by Maisha Velez RN) Preferred Language: Polish Communication Ability: Effective 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 Beliefs That Will Affect Care: Baptist Baptist Beliefs: DRUZE, NO SPECIAL NEEDS marital status: Current Living Situation: Spouse current occupational status: retired Other Information That Helps Us Care for You: No Feels Safe at Home: Yes Smoking Status: Never smoker Do You Dip or Chew Tobacco: No ; Hx Alcohol Use: No Hx Substance Use: No Seatbelt Use: always Sunscreen Use: Yes Review of Systems All systems reviewed & are unremarkable except as noted in HPI & below Physical Exam Constitutional: well developed and well nourished; no acute distress Eyes: + anicteric sclerae Respiratory: normal respiratory effort; no respiratory distress Cardiovascular: Rate/Rhythm: regular rate Gastrointestinal (Abdomen): Percussion/Palpation: abdomen soft Musculoskeletal: Gait: normal gait Skin: no rashes, warm and dry Neurologic: awake Psychiatric: Orientation: alert Results & Data Vital Signs (Past 12 Hours) Vital Signs Temp Pulse Resp BP Pulse Ox 01/16/20 05:39 36.9 C 91 H 18 161/93 H 99
[2020-01-16] MEDS ORDERED: BUPIVACAINE 0.5 % 5 MG/1 ML MPF 30ML VIAL ONE (06:47)
[2020-01-16] MEDS ORDERED: ONDANSETRON INJ 2 MG/ML 2 ML VIAL IV PRN ×2 (06:50→09:40)
[2020-01-16] MEDS ORDERED: HYDROmorphone INJ 2 MG/ML SYR/VIAL IV PRN (06:50)
[2020-01-16] MEDS ORDERED: PROMETHAZINE HCL 6.25 MG in SODIUM CHLORIDE 0.9% 50 ML IV PRN (06:50)
[2020-01-16] MEDS ORDERED: ATROPINE SULFATE 0.1 MG/ML 10ML SYR IV PRN (06:50)
[2020-01-16] MEDS ORDERED: ePHEDrine sulfate 50 MG/ML AMP IV PRN (06:50)
[2020-01-16] MEDS ORDERED: ROCURONIUM BROMIDE 10 MG/ML 5 ML VIAL ONE (07:30)
[2020-01-16] MEDS ORDERED: ACETAMINOPHEN 1,000 MG/100 ML VIAL IV STA (07:51)
--- NOTE | 2020-01-16 07:51 | Post Operative Brief Note ---
PG Immediate Post Op with CF Date of Surgery January 16, 2020 Pre & Post Diagnosis Operation Date: 01/16/20 07:00 Pre-Op Diagnosis: Biliary Colic Post-Op Diagnosis: Biliary Colic, chronic cholecystitis, adhesions I identified the patient and participated in the time-out.: Yes Procedure Operation Date: 01/16/20 07:00 Actual Procedures p Laparoscopic Cholecystectomy(Not Applicable) - Osmany Houston MD, FACS lysis of adhesions Surgeon Osmany Houston MD, FACS Skin Care Therapist Leonardo Cordero Estimated Blood Loss 5 Findings Consistent with Post-Op Diagnosis Specimens Specimen Description: A. Gallbladder
--- NOTE | 2020-01-16 08:11 | Operative Report ---
DATE OF OPERATION: 01/16/2020 NAME OF OPERATION: Laparoscopic cholecystectomy with lysis of adhesions. PREOPERATIVE DIAGNOSIS: Biliary colic. POSTOPERATIVE DIAGNOSES: Biliary colic with chronic cholecystitis and adhesions. STAFF SURGEON: Osmany Houston MD. LANGUAGE INSTRUCTOR: Donna Cordero PA-C. ANESTHESIA: General. DESCRIPTION OF PROCEDURE: The patient was brought in the operating room and placed on the operating table in supine position. Pneumatic stockings, orogastric tube were placed. My assistant teaching professor helped with prepping, draping, removal of the gallbladder and closure of the wounds. The patient was morbidly obese. 0.5% plain Marcaine was used to anesthetize the skin and subcutaneous tissue just above the umbilicus. Dissection was carried down through significant adipose tissue to the fascia, placing a Veress needle producing pneumoperitoneum. An 11 mm port was placed at this level and then three 5 mm ports were placed, 1 cephalad and 2 laterally under visualization. The patient's gallbladder was grasped and retracted. There were adhesions of the omentum to the gallbladder. These were taken down. Gallbladder was aspirated of bile and dissection carried out at the raymond hepatis, identifying the cystic duct and cystic artery. These were clipped and transected. The gallbladder was then dissected away from the liver bed in the usual fashion, placed in an Endobag. After appropriate hemostasis and irrigation, the Endobag was removed through the umbilical site. All ports were then removed. Fascia at the umbilicus closed using interrupted 0 Vicryl suture. Subcutaneous tissue reapproximated using 2-0 plain suture and then the skin reapproximated using 4-0 Monocryl with Steri-Strips. The patient was transferred to recovery room in stable condition. I attest to the content of the Intraoperative Record and any orders documented therein. Any exception s are noted below.
[2020-01-16] MEDS: fentaNYL citrate 100 MCG/2 ML VIAL IV PRN ×2 (08:21→08:26)
--- NOTE | 2020-01-16 08:36 | Anesthesiology Progress Note ---
Date of Service January 16, 2020 Anesthesia Post Procedure Vital Signs Vital Signs: Temp Pulse Pulse Resp BP BP Pulse Ox 01/16/20 08:25 78 17 139/68 99 01/16/20 08:15 78 20 114/88 98 01/16/20 08:09 36.1 C L 77 13 142/97 H 95 01/16/20 05:39 36.9 C 91 H 18 161/93 H 99 Pain Intensity Right Upper Abdomen: Pain Intensity: 4 Transfer of Care Handoff Completed per policy Notes Mental Status: alert / awake / arousable Patient Amnestic to Procedure: Yes Nausea / Vomiting: adequately controlled Pain: adequately controlled Airway Patency, RR, SpO2: stable & adequate BP & HR: stable & adequate Hydration State: stable & adequate Anesthetic Complications: no major complications apparent
[2020-01-16] MEDS ORDERED: ACETAMINOPHEN 325 MG TAB PO PRN (09:40)
[2020-01-16] MEDS ORDERED: MoRPHine SULFATE 2 MG/ML CARP IV PRN ×2 (09:40)
[2020-01-16] MEDS ORDERED: OXYCODONE HCL IR 5 MG TAB (IMMEDIATE RELEASE) PO PRN (09:40)
[2020-01-16] MEDS ORDERED: ALBUTEROL HFA 8 GM INHALER INH PRN (09:40)
[2020-01-16] MEDS ORDERED: PROMETHAZINE HCL 12.5 MG in SODIUM CHLORIDE 0.9% 50 ML IV PRN (09:40)
[2020-01-16] MEDS: LACTATED RINGER'S 1,000 ML IV SCH (09:56)
[2020-01-16] MEDS: PANTOprazole 40 MG TAB PO SCH (10:25)
[2020-01-16] MEDS ORDERED: GLUCOSE 40% GEL 15 GM TUBE PO PRN (10:46)
[2020-01-16] MEDS ORDERED: GLUCOSE 10 TABS/TUBE PO PRN (10:46)
[2020-01-16] MEDS ORDERED: DEXTROSE 50% 50 ML SYRINGE IV PRN (10:46)
[2020-01-16] MEDS ORDERED: GLUCAGON FOR INJ 1 MG VIAL SQ PRN (10:46)
[2020-01-16] MEDS ORDERED: CARBOHYDRATES FOR HYPOGLYCEMIA PO PRN (10:46)
[2020-01-16] MEDS: INSULIN ASPART 100 UNITS/ML 3 ML PEN SC SCH ×3 (12:44→21:31)
[2020-01-16] MEDS ORDERED: NURSING DECISION MEDICATION ONE (15:23)
--- NOTE | 2020-01-16 15:24 | Hospitalist Consultation ---
Date of Consultation January 16, 2020 Assessment & Plan (1) Biliary colic: - S/p lap jorge today, doing well. - Pain control per primary team. - Monitor CBC in the morning to evaluate for acute blood loss anemia. - Discharge likely on POD#1, per surgery team. (2) Hypertension: - On Losartan 100 mg daily at home - currently on hold during operative period. - Can restart on discharge. (3) Hypercholesterolemia: - Not currently on statin agent. - Most recent lipid panel showed triglycerides 199, Chol 165, LDL 92, HDL 43. - Heart healthy diet, encourage weight loss. (4) Type 2 diabetes mellitus: - Most recent A1C was 7.1 on 12/27/19. - On NPH, Victoza injection and Metformin at home. - SSI as inpatient. - Carb consistent diet. (5) H/O deep venous thrombosis: - Provoked, following hysterectomy >10 yrs ago. - Recommend DVT ppx as soon as possible once approved by surgery -- consider giving anticoagulation as outpatient following discharge for minimum of 7-10 days. (6) Laryngopharyngeal reflux: - PPI daily. (7) IBS (irritable bowel syndrome): - Will monitor. (8) Anemia: - Monitor CBC daily to evaluate for acute blood loss. (9) Morbid obesity: - BMI 45.2 - encourage weight loss and exercise. DVT ppx: SCDs; hold pharmacologic ppx until approved by surgery. Dispo: Will continue to follow, please call with any questions. Supervising Physician Co-Signing Physician Notes Attending attestation and consult note: Pt seen/examined, chart reviewed, consult care plan d/w EUNICE Stockton. I agree w/ the monte components of her documentation. 64yo female with T2DM, morbid obesity, and h/o post-op DVT in setting of hysterectomy in the past who presented for elective lap jorge today by Dr Houston for biliary colic/chronic cholecystitis. I saw her post-op on the surgical floor and she was resting comfortably. Denied cp, dyspnea or nausea/emesis. Mild incisional pain from her operation. PMH, PSH, allergies, meds, sochx, famhx, ros - reviewed VSS gen - NAD, a/o x 3, obese mouth - MMM neck - no jvd heart - RRR, s1 s2 lungs - CTA b/l abd - slightly distended, BS+, incisional tenderness only ext - no edema, symmetric legs A/P: 1. chronic cholecystitis/biliary colic - s/p lap jorge today - per Dr Houston 2. h/o post-op DVT - recommend lovenox 40mg once daily starting in AM. Consider prophylactic lovenox once daily at home for 10-14 days after discharge. Other option would be low-dose xarelto for similar time period. Consider d/w Dr Montero from anticoagulation clinic. Will need to d/w Dr Houston. 3. T2DM, other medical issues - per Ms Stockton. Faheem Domingo MD History of Present Illness Reason for Consultation: Medical Management Attending Physician: Osmany Houston MD, [facility] History of Present Illness Mrs. Flores is a 64 year old female with past medical history of anemia, asthma, DM, GERD, H/o provoked DVT post op following hysterectomy >10 yrs ago, HLD, HTN, IBS, Obesity who presented for a laparoscopic cholecystectomy. She is doing well post op. Denies urinary retention, chest pain, SOB, N/V. Allergies Allergy/AdvReac Type Severity Reaction Status Date / Time nitrofurantoin Allergy Unknown HIVES Verified 01/16/20 05:42 Home Medications Home Medications Medication Instructions Recorded Confirmed Type metformin 1,000 mg tablet 1,000 mg PO BID #180 tab 07/01/19 01/16/20 History omeprazole 20 mg capsule,delayed 20 mg PO QAM #1 cap 07/01/19 01/16/20 History release cyanocobalamin (vitamin B-12) 100 100 mcg PO DAILY 07/05/19 01/16/20 History mcg tablet pen needle, diabetic 31 gauge x #90 ea 07/05/19 08/18/19 Rx 5/16" insulin syringe-needle U-100 0.5 #100 ea 07/07/19 08/18/19 Rx mL 31 gauge x 5/16" albuterol sulfate 90 mcg/actuation 1 - 2 puffs INHALATION Q4H PRN #1 07/19/19 01/16/20 History aerosol inhaler gm blood sugar diagnostic #180 ea 09/22/19 Rx blood-glucose meter #1 ea 09/22/19 Rx lancets #200 ea 09/22/19 Rx lancets #200 ea 11/01/19 Rx oxycodone-acetaminophen 5 mg-325 1 tab PO Q6H PRN #28 tab 09/23/19 01/16/20 Rx mg tablet diclofenac sodium 1 % topical gel 4 gm TOP QID PRN 12/08/19 01/16/20 History diphenhydramine HCl 25 mg capsule 25 mg PO TID PRN 12/08/19 01/16/20 History fexofenadine 180 mg tablet 180 mg PO UD PRN 12/08/19 01/16/20 History hydrocortisone 1 %-iodoquinol 1 % 1 appln TOP TID 12/08/19 01/16/20 History topical cream lidocaine 5 % topical patch 1 patch TOP UD PRN 12/08/19 01/16/20 History omega-3 fatty acids 1,250 mg 1,250 mg PO DAILY 12/08/19 01/16/20 History capsule liraglutide 0.6 mg/0.1 mL (18 mg/3 1.2 mg SQ QPM #9 ml 01/03/20 01/16/20 Rx mL) subcutaneous pen injector insulin NPH isoph U-100 human 100 25 units SUBCUT DAILY #30 ml 01/04/20 01/16/20 Rx unit/mL subcutaneous suspension losartan 100 mg PO DAILY 01/16/20 01/16/20 History Patient History Medical History Anemia hx iron deficiency/iron infusion (years ago) Asthma, mild intermittent per records, rare inhaler use years ago Back problem chronic Bone spur r/l knee s/p injection 10/2019 Diabetes IDDM (+ injectable/oral meds) Gastrointestinal problem + reflux/well controlled Hiatal hernia (Acute) History of blood clots R/L DVT post-op (years ago) History of urinary tract infection most recent Fall 2018 Hypercholesterolemia Hypertension IBS (irritable bowel syndrome) Morbid obesity Nephrolithiasis hx Yeast infection hx recurrent yeast infections, abdominal skin folds (most recent early 11/2019) Surgical History H/O lumbosacral spine surgery CYST REMOVED H/O: hysterectomy History of colonoscopy History of endoscopy History of hemorrhoidectomy History of toe surgery L BIG TOE Hx of LASIK S/P laparoscopic cholecystectomy (01/16/20) Laparoscopic cholecystectomy with lysis of adhesions. Dr. Houston 01/16/20 Family History Mother Diabetes Hypertension Heart disease Father Hypertension Cancer Heart disease Social History Preferred Language: Montserratian Communication Ability: Effective Christian Science Nurse Required: No Beliefs That Will Affect Care: Judaism Judaism Beliefs: ZOROASTRIAN, NO SPECIAL NEEDS marital status: Current Living Situation: Spouse current occupational status: retired Other Information That Helps Us Care for You: No Feels Safe at Home: Yes Smoking Status: Never smoker Do You Dip or Chew Tobacco: No ; Hx Alcohol Use: No Hx Substance Use: No Seatbelt Use: always Sunscreen Use: Yes Review of Systems Review of Systems: All systems reviewed & are unremarkable except as noted in HPI & below Constitutional: no fever, no chills, no fatigue, no weakness and no anorexia Respiratory: no cough, no dyspnea and no dyspnea on exertion Cardiovascular: no chest pain, no palpitations and no edema Gastrointestinal: no abdominal pain, no nausea, no vomiting and no constipation Genitourinary: no difficulty urinating Musculoskeletal: no back pain and no joint pain Integumentary: no non-healing lesions Physical Exam Physical Exam: General: Resting comfortably HEENT: NC/AT; PERRLA with EOMI; Winfred conjunctiva, MMM. No erythema of posterior pharynx Neck: Supple and nontender Cardiac: RRR Lungs: CTA bilaterally Abdomen: Bowel normoactive X 4; Nontender to palpation Extremities: Warm. No edema present Neuro: No focal weakness Skin: No rash Results & Data ([facility]) Vital Signs (Past 12 Hours) Vital Signs Temp Pulse Pulse Resp BP BP Pulse Ox 01/16/20 15:04 36.9 C 89 18 139/82 99 01/16/20 12:57 36.9 C 97 H 18 149/75 H 98 01/16/20 12:24 83 16 115/68 100 01/16/20 11:10 96 H 95 H 126/82 01/16/20 10:00 77 16 136/75 97 01/16/20 09:30 36.5 C 87 18 134/76 96 01/16/20 09:00 76 16 122/62 99 01/16/20 08:45 36.1 C L 76 15 126/69 99 01/16/20 08:35 85 21 110/64 97 01/16/20 08:25 78 17 139/68 99 01/16/20 08:15 78 20 114/88 98 01/16/20 08:09 36.1 C L 77 13 142/97 H 95 01/16/20 05:39 36.9 C 91 H 18 161/93 H 99 Laboratory Results 01/16/20 01/16/20 01/16/20 Range/Units 12:10 08:12 05:37 POC Glucose 155 H 156 H 109 H (70-99) mg/dl PG Care Time/CCT Total # of Minutes Spent Total Time Spent with Patient: Total time spent is greater than 50% in coordination of care (as documented) at patient's floor/unit and/or counseling patient: Coding Level of Care Code 30566 Inpt Consult Level 3 Diagnoses Biliary colic K80.50 Hypertension I10 Hypercholesterolemia E78.00 Type 2 diabetes mellitus E11.9 H/O deep venous thrombosis Z86.718 Laryngopharyngeal reflux K21.9 IBS (irritable bowel syndrome) K58.9 Anemia D64.9 Morbid obesity E66.01
[2020-01-16] MEDS ORDERED: COUGH DROP (SUGAR FREE) LOZ 24 LOZ/1 BOX BUCCAL ONE (15:26)
[2020-01-16] MEDS ORDERED: COUGH DROP (SUGAR FREE) LOZ 24 LOZ/1 BOX BUCCAL PRN (15:28)
[2020-01-17] MEDS: LACTATED RINGER'S 1,000 ML IV SCH (00:41)
[2020-01-17 06:36] LABS: Hematocrit (blood only) 34.3 % (37-47); Hemoglobin 10.9 g/dL (12.0-16.0); Mean Corpuscular Hemoglobin 31.3 pg (25-34); Mean Corpuscular Hgb Conc 31.8 g/dL (32-36); Mean Corpuscular Volume 98.6 fL (80-100); Mean Platelet Volume 9.9 fL (7.4-10.4); Platelet Count 228 K/uL (130-400); RDW Coefficient of Variation 13.1 % (11.5-14.5); RDW Standard Deviation 46.8 fL (36.4-46.3); Red Blood Count 3.48 M/uL (4.2-5.4); White Blood Count 8.52 K/uL (4.8-10.8)
[2020-01-17 07:06] LABS: BUN Creatinine Ratio 15.4 (10-20); Calcium 8.7 mg/dl (8.5-10.1); Creatinine Clr Calc Pharmacy 104.7 ml/min; Est GFR (African American) 86.4; Est GFR (Non-African American) 74.5; Magnesium 1.7 mg/dl (1.8-2.4); Potassium 3.8 mmol/L (3.5-5.1)
--- NOTE | 2020-01-17 08:10 | Anesthesiology Progress Note ---
Date of Service January 17, 2020 Anesthesia Post Procedure Vital Signs Vital Signs: Temp Pulse Pulse Resp BP Pulse Ox 01/17/20 08:05 36.6 C 97 H 83 16 137/83 96 01/17/20 07:17 36.6 C 83 16 137/83 96 01/17/20 02:38 36.6 C 79 15 111/65 96 01/16/20 23:05 37.0 C 76 14 138/79 97 01/16/20 19:26 37.0 C 90 18 115/61 95 01/16/20 15:04 36.9 C 89 18 139/82 99 01/16/20 12:57 36.9 C 97 H 18 149/75 H 98 01/16/20 12:24 83 16 115/68 100 01/16/20 11:10 96 H 95 H 126/82 01/16/20 10:00 77 16 136/75 97 01/16/20 09:30 36.5 C 87 18 134/76 96 01/16/20 09:00 76 16 122/62 99 01/16/20 08:45 36.1 C L 76 15 126/69 99 01/16/20 08:35 85 21 110/64 97 01/16/20 08:25 78 17 139/68 99 01/16/20 08:15 78 20 114/88 98 Pain Intensity Right Upper Abdomen: Pain Intensity: 4 Notes Mental Status: alert / awake / arousable and participated in evaluation Patient Amnestic to Procedure: Yes Nausea / Vomiting: adequately controlled Pain: adequately controlled Airway Patency, RR, SpO2: stable & adequate BP & HR: stable & adequate Hydration State: stable & adequate Anesthetic Complications: no major complications apparent and Pt Satisfied with anesthetic care
[2020-01-17] MEDS: PANTOprazole 40 MG TAB PO SCH (08:49)
[2020-01-17] MEDS: INSULIN ASPART 100 UNITS/ML 3 ML PEN SC SCH (08:51)
[2020-01-17] MEDS ORDERED: MAGNESIUM OXIDE 400 MG TAB PO ONE (08:53)
--- NOTE | 2020-01-17 12:07 | Communication Note ---
Date of Service: January 17, 2020 Chart rounded on patient, did not evaluate at bedside prior to discharge. Mag level 1.7 - ordered mag oxide 400 mg x 1 dose. Acute blood loss anemia -- no indication for further monitoring, will likely remain stable as outpatient. BG has been well controlled with SSI coverage; can resume home meds at discharge. Med rec was updated to include Losartan 100 mg daily -- resume med at discharge. Will sign off, thank you for involving us in this patient's care. Please call with any questions.
--- NOTE | 2020-01-18 09:41 | Discharge Summary ---
PRINCIPAL DIAGNOSIS: Biliary colic. OTHER DIAGNOSIS: Chronic cholecystitis. PROCEDURES: The patient underwent laparoscopic cholecystectomy. HISTORY OF PRESENT ILLNESS: The patient is a 64-year-old female brought into the hospital on 01/16/2020 to undergo elective laparoscopic cholecystectomy. She underwent the operation without difficulty and did well overnight and was felt stable for discharge on 01/17/2020 to be followed in the surgical clinic within 1-2 weeks.
== END 2020-01-17 12:02 | disposition home or self-care (01) ==
LOC: ASU 05:14 → 3W 05:14

== ENCOUNTER 2024-05-04 06:25 | Observation (INO) ==
--- NOTE | 2024-04-07 11:05 | PAT Medication Instructions ---
Medication Instructions Date of Service April 07, 2024 Home Medications Medication Instructions Recorded blood sugar diagnostic (OneTouch #100 ea 08/16/21 Verio test strips) blood sugar diagnostic (OneTouch #100 ea 08/20/21 Verio test strips) blood-glucose meter (OneTouch #1 ea 08/20/21 Verio Flex Meter) lancets (OneTouch UltraSoft #200 ea 08/20/21 Lancets) albuterol sulfate 90 mcg/actuation 1 - 2 puff inhalation Q4H PRN 12/01/22 aerosol inhaler shortness of breath #6.7 grams betamethasone dipropionate 0.05 % 1 applic topical DAILY PRN skin 06/17/23 topical cream irritation #15 grams blood-glucose meter,continuous #1 ea 08/04/23 (Dexcom G7 [employer] V[employer]) rosuvastatin 5 mg tablet (Crestor) 5 mg PO QPM #90 tabs 09/03/23 pen needle, diabetic 32 gauge x #100 ea 09/29/2332" (BD Ultra-Fine Devika Pen Needle) blood-glucose sensor (Dexcom G7 #3 ea 02/24/24 Sensor device) metformin 1,000 mg tablet 1,000 mg PO BID #180 tabs 03/01/24 tirzepatide 5 mg/0.5 mL 5 mg (0.5 mL) subcut .weekly #6 mL 03/15/24 subcutaneous pen injector diclofenac sodium 1 % topical gel 4 gm topical QID PRN pain diphenhydramine HCl 25 mg capsule 25 mg PO TID PRN HIVES hydrocortisone 1 %-iodoquinol 1 % topical cream 1 appln topical TID PRN yeast infections cholecalciferol (vitamin D3) 25 mcg (1,000 unit) capsule 25 mcg PO QAM oxycodone-acetaminophen 5 mg-325 mg tablet (Percocet) 1 tab PO Q6H PRN Pain econazole 1 % topical cream 1 applic topical DAILY PRN Rash nystatin 100,000 unit/gram topical powder 1 applic topical DAILY PRN RASH albuterol sulfate 90 mcg/actuation aerosol inhaler 1 - 2 puff inhalation Q4H PRN shortness of breath calcium glycerophosphate 65 mg tablet (Prelief) 65 mg PO QID PRN UTI issues betamethasone dipropionate 0.05 % topical cream 1 applic topical DAILY PRN skin irritation gabapentin 100 mg capsule 200 mg PO HS PRN Pain rosuvastatin 5 mg tablet (Crestor) 5 mg PO QPM methocarbamol 500 mg tablet 500 mg PO QID PRN Pain insulin NPH-regular 70-30 U-100 insulin 100 unit/mL subcutaneous pen (Novolin 70-30 FlexPen U-100 Insulin) 25 - 27 unit subcut BID metformin 1,000 mg tablet 1,000 mg PO BID tirzepatide 5 mg/0.5 mL subcutaneous pen injector 5 mg (0.5 mL) subcut .weekly calcium 600 mg capsule 600 mg PO DAILY cyanocobalamin (vitamin B-12) 1,000 mcg tablet (Vitamin B-12) 1,000 mcg PO DAILY dulaglutide 1.5 mg/0.5 mL subcutaneous pen injector (Trulicity) 1.5 mg subcut Q 7D glucosamine sulf dipot chlr,msm,chond 550 mg-C 30 mg-loco 1 mg capsule (Glucosamine Chondroitin) 1 cap PO DAILY losartan 100 mg-hydrochlorothiazide 12.5 mg tablet 1 tab PO QAM lutein 6 mg capsule 6 mg PO DAILY tamsulosin 0.4 mg capsule (Flomax) 0.4 mg PO QPM PRN urinary issues Continue as directed diphenhydramine HCl 25 mg capsule 25 mg PO TID PRN HIVES (if needed) STOP taking 2 weeks before surgery (or as soon as possible if surgery is within 2 weeks) glucosamine sulf dipot chlr,msm,chond 550 mg-C 30 mg-loco 1 mg capsule (Glucosamine Chondroitin) 1 cap PO DAILY lutein 6 mg capsule 6 mg PO DAILY STOP 7 days prior to surgery dulaglutide 1.5 mg/0.5 mL subcutaneous pen injector (Trulicity) 1.5 mg subcut Q7D tirzepatide 5 mg/0.5 mL subcutaneous pen injector 5 mg (0.5 mL) subcut .weekly (Currently on hold per available records) STOP taking 24 hours before surgery diclofenac sodium 1 % topical gel 4 gm topical QID PRN pain hydrocortisone 1 %-iodoquinol 1 % topical cream 1 appln topical TID PRN yeast infections econazole 1 % topical cream 1 applic topical DAILY PRN Rash nystatin 100,000 unit/gram topical powder 1 applic topical DAILY PRN RASH betamethasone dipropionate 0.05 % topical cream 1 applic topical DAILY PRN skin irritation DO NOT take the morning of surgery cholecalciferol (vitamin D3) 25 mcg (1,000 unit) capsule 25 mcg PO QAM calcium glycerophosphate 65 mg tablet (Prelief) 65 mg PO QID PRN UTI issues metformin 1,000 mg tablet 1,000 mg PO BID calcium 600 mg capsule 600 mg PO DAILY cyanocobalamin (vitamin B-12) 1,000 mcg tablet (Vitamin B-12) 1,000 mcg PO DAILY losartan 100 mg-hydrochlorothiazide 12.5 mg tablet 1 tab PO QAM Take morning of surgery With a small sip of water, OTHERWISE NOTHING TO EAT OR DRINK AFTER MIDNIGHT: oxycodone-acetaminophen 5 mg-325 mg tablet (Percocet) 1 tab PO Q6H PRN Pain (if needed) albuterol sulfate 90 mcg/actuation aerosol inhaler 1 - 2 puff inhalation Q4H PRN shortness of breath (use if needed; please bring rescue inhaler with you to hospital day of surgery if possible) methocarbamol 500 mg tablet 500 mg PO QID PRN Pain (if needed) Take evening before surgery oxycodone-acetaminophen 5 mg-325 mg tablet (Percocet) 1 tab PO Q6H PRN Pain (if needed) albuterol sulfate 90 mcg/actuation aerosol inhaler 1 - 2 puff inhalation Q4H PRN shortness of breath (if needed) calcium glycerophosphate 65 mg tablet (Prelief) 65 mg PO QID PRN UTI issues (if needed) gabapentin 100 mg capsule 200 mg PO HS PRN Pain (if needed) rosuvastatin 5 mg tablet (Crestor) 5 mg PO QPM methocarbamol 500 mg tablet 500 mg PO QID PRN Pain (if needed) insulin NPH-regular 70-30 U-100 insulin 100 unit/mL subcutaneous pen (Novolin 70-30 FlexPen U-100 Insulin) 25 - 27 unit subcut BID metformin 1,000 mg tablet 1,000 mg PO BID tamsulosin 0.4 mg capsule (Flomax) 0.4 mg PO QPM PRN urinary issues (if needed) Insulin Dependent Diabetic Patients * Test your blood sugar the morning of surgery * If Blood Sugar is GREATER THAN 150, take HALF of your regular dose of: insulin NPH-regular 70-30 U-100 insulin 100 unit/mL subcutaneous pen (Novolin 70-30 FlexPen U-100 Insulin) * If Blood Sugar is LESS THAN 150, DO NOT TAKE ANY: insulin NPH-regular 70-30 U- 100 insulin 100 unit/mL subcutaneous pen (Novolin 70-30 FlexPen U-100 Insulin) Other Notes If you have any questions please call us at [phone] or [phone] or [phone] or [phone]
--- NOTE | 2024-04-14 15:00 | Anesthesiology Consultation ---
Date of Service April 14, 2024 Assessment & Plan (1) Encounter for pre-operative examination: - Check BSG AM DOS - Outpatient joint assessment: Pt currently scheduled for inpatient pathway. If surgeon requests review for outpatient joint pathway, patient is not recommended candidate for outpatient joint program from anesthesia standpoint based on available information. - Trulicity instructions: Patient takes on Wednesdays. Patient informed at PAT visit to stop 7 days prior to surgery- voiced understanding. DOS 05/04/24. Advised last dose to be 04/27/24 (per protocol). - Hx difficult intubation: Laparoscopic cholecystectomy with AUBRIE (01/16/20): " large tongue, small mouth opening, could only see epiglottis. Dr Brown attempted Albert 2.. unsuccessful.. Glidescope#3 attempted but still could not get good view of cords. Fiberoptic used with Glidescope. Grade 3 view with Glidescope + fiberoptic.. passed through cords- 7.5 ETT threaded over fiberoptic and passed through cords. Small amt blood noted in airway with no apparent source of bleeding" - Patient acceptable risk for surgery pending surgeon-ordered PCP preop evaluation ([facility], appt 04/22). Chart Review Chart Review: Patient seen in Pre Admission Testing Teaching & Discussion Pre-Anesthesia Teaching/Discussion Notes: Instructed NPO after midnight before surgery,except medications with 15 cc of water. Medication instructions provided according to the PAT guidelines. History Surgery Operation Date: 05/04/24 07:00 Proposed Procedures p Left Total Knee Arthroplasty - Yao Marr MD Height/Weight Height: 5 ft 10 in Weight: 133.1 kg Allergies Allergy/AdvReac Type Severity Reaction Status Date / Time nitrofurantoin Allergy Unknown Hives Verified 04/13/24 09:37 Medications Home Medications Medication Instructions Recorded Confirmed Last Taken diclofenac sodium 1 % topical gel 4 gm topical QID PRN pain 12/08/19 03/30/24 09/27/23 diphenhydramine HCl 25 mg capsule 25 mg PO TID PRN HIVES 12/08/19 03/30/24 Unknown hydrocortisone 1 %-iodoquinol 1 % 1 appln topical TID PRN yeast 12/08/19 03/30/24 06/12/20 topical cream infections cholecalciferol (vitamin D3) 25 25 mcg PO QAM 05/21/20 03/30/2409/29/23 mcg (1,000 unit) capsule oxycodone-acetaminophen 5 mg-325 1 tab PO Q6H PRN Pain 06/05/20 03/30/24 09/23/23 mg tablet (Percocet) blood sugar diagnostic (OneTouch #100 ea 08/16/21 12/15/23 Unknown Verio test strips) blood sugar diagnostic (OneTouch #100 ea 08/20/21 12/15/23 Unknown Verio test strips) blood-glucose meter (OneTouch #1 ea 08/20/21 12/15/23 Unknown Verio Flex Meter) lancets (OneTouch UltraSoft #200 ea 08/20/21 12/15/23 Unknown Lancets) econazole 1 % topical cream 1 applic topical DAILY PRN Rash 11/14/21 03/30/24 Unknown nystatin 100,000 unit/gram topical 1 applic topical DAILY PRN RASH 11/14/21 03/30/24 09/29/23 powder albuterol sulfate 90 mcg/actuation 1 - 2 puff inhalation Q4H PRN 12/01/22 03/30/24 Unknown aerosol inhaler shortness of breath #6.7 grams calcium glycerophosphate 65 mg 65 mg PO QID PRN UTI issues 04/16/23 03/30/24 07/27/23 tablet (Prelief) betamethasone dipropionate 0.05 % 1 applic topical DAILY PRN skin 06/17/23 03/30/24 Unknown topical cream irritation #15 grams gabapentin 100 mg capsule 200 mg PO HS PRN Pain 07/28/23 03/30/24 09/29/23 blood-glucose meter,continuous #1 ea 08/04/23 12/15/23 Unknown (Dexcom G7 Certified Emergency Vehicle Technician) rosuvastatin 5 mg tablet (Crestor) 5 mg PO QPM #90 tabs 09/03/23 03/30/24 09/29/23 methocarbamol 500 mg tablet 500 mg PO QID PRN Pain 09/22/23 03/30/24 09/29/23 pen needle, diabetic 32 gauge x #100 ea 09/29/23 12/15/23 Unknown 532" (BD Ultra-Fine Devika Pen Needle) insulin NPH-regular 70-30 U-100 25 - 27 unit subcut BID 10/30/23 03/30/24 Unknown insulin 100 unit/mL subcutaneous pen (Novolin 70-30 FlexPen U-100 Insulin) blood-glucose sensor (Dexcom G7 #3 ea 02/24/24 Unknown Sensor device) metformin 1,000 mg tablet 1,000 mg PO BID #180 tabs 03/01/24 03/30/24 Unknown tirzepatide 5 mg/0.5 mL 5 mg (0.5 mL) subcut .weekly #6 mL 03/15/24 03/30/24 Unknown subcutaneous pen injector calcium 600 mg capsule 600 mg PO DAILY 03/30/24 03/30/24 Unknown cyanocobalamin (vitamin B-12) 1,000 mcg PO DAILY 03/30/24 03/30/24 Unknown 1,000 mcg tablet (Vitamin B-12) dulaglutide 1.5 mg/0.5 mL 1.5 mg subcut Q7D 03/30/24 03/30/24 Unknown subcutaneous pen injector (Trulicity) glucosamine sulf dipot 1 cap PO DAILY 03/30/24 03/30/24 Unknown chlr,msm,chond 550 mg-C 30 mg-loco 1 mg capsule (Glucosamine Chondroitin) losartan 100 1 tab PO QAM 03/30/24 03/30/24 Unknown mg-hydrochlorothiazide 12.5 mg tablet lutein 6 mg capsule 6 mg PO DAILY 03/30/24 03/30/24 Unknown tamsulosin 0.4 mg capsule (Flomax) 0.4 mg PO QPM PRN urinary issues 03/30/2407/16 Unknown Past Medical History Medical History Anemia Hx iron deficiency/iron infusion (years ago) Arthritis Asthma, mild intermittent B12 deficiency Bone spur B/L knee s/p injection 2019 Also present in back Empty sella turcica Not felt to be clinically significant, f/u as needed per [facility] neuro 03/2023 GERD (gastroesophageal reflux disease) No recent issues H/O deep venous thrombosis R/L DVT post-op (years ago) per records Was on warfarin x short period of time after event Herniated disc L4, L5, S1 Hiatal hernia History of COVID-19 02/2023 (home test): fever, chills, nausea, fatigue History of kidney infection Resulted in right kidney "scarring" Lumbosacral radiculopathy at L4 Morbid obesity Nephrolithiasis Hx Tubular adenoma of colon Type 2 diabetes mellitus White matter abnormality on MRI of brain Multifocal nonspecific white matter hyperintensities per [facility] records, f/u as needed per [facility] neuro 03/2023 Yeast infection Hx recurrent yeast infections, abdominal skin folds No current issues Exercise / Class Metabolic Activity II 4-5 Yardwork/Stairs/Walk up hill (one FS: no CP, no SOB) Past Family History Family History Mother Diabetes Hypertension Heart disease Father Hypertension Cancer Heart disease Grandfather (Maternal) No problems noted. Grandmother (Maternal) Colorectal cancer Denies family history of Ovarian cancer Prostate cancer Myocardial infarction Breast cancer Past Surgical History Surgical History H/O lumbosacral spine surgery cyst removed H/O: hysterectomy History of colonoscopy History of esophagogastroduodenoscopy (EGD) History of hemorrhoidectomy History of root canal procedure History of toe surgery left great toe History of tooth extraction wisdom teeth Hx of LASIK R/L S/P epidural steroid injection S/P laparoscopic cholecystectomy (01/16/20) Laparoscopic cholecystectomy with AUBRIE: "large tongue, small mouth opening, could only see epiglottis. Dr Brown attempted [place] 2.. unsuccessful.. Glidescope#3 attempted but still could not get good view of cords. Fiberoptic used with Glidescope. Grade 3 view with Glidescope + fiberoptic.. passed through cords- 7.5 ETT threaded over fiberoptic and passed through cords. Small amt blood noted in airway with no apparent source of bleeding" Past Anesthesia History Difficult Airway (Laparoscopic cholecystectomy with AUBRIE (01/16/20): "large tongue, small mouth opening, could only see epiglottis. Dr Brown attempted Albert 2.. unsuccessful.. Glidescope#3 attempted but still could not get good view of cords. Fiberoptic used with Glidescope. Grade 3 view with Glidescope + fiberoptic.) and No Family Hx of Anesthesia Complications History of PONV No Hx of PONV and No Hx of Motion Sickness Social History Smoking Status: Never smoker Do You Dip or Chew Tobacco: No Hx Alcohol Use: Yes Alcohol type: hard liquor alcohol intake frequency: a few times a month (1 drink every 10 days) substance use type: marijuana (Remote hx- 40 years ago) Review of Systems Patient denies chest pain, shortness of breath, dyspnea on exertion, fever, chills, cough, wheezing, palpitations. Physical Exam Vital Signs BP 103/65 P 90 TEMP 98.4 SP02 97%RA RESP 18 Physical Full cervical extension range of motion. Full TMJ range of motion. TMD > 3.5 finger breaths Mallampati Score 1 Dentition: missing molars, + caps/crowns Lungs: clear throughout to auscultation Cardiac: regular rate and rhythm, no murmurs noted Spine: normal Carotid arteries: negative bruit Extremities: no LE edema Thick neck Lab Results Anesthesia Preop Results Results Anesthesia Widget: WBC 7.57 K/ul (4.8-10.8) 04/14/24 Hgb 12.0 g/dl (12.0-16.0) 04/14/24 Hct 36.7 % (37.0-47.0) L 04/14/24 Plt 242 K/uL (130-400) 04/14/24 Na 143 mmol/L (136-145) 04/14/24 K 3.9 mmol/L (3.5-5.1) 04/14/24 Cl 108 mmol/L (98-107) H 04/14/24 CO2 30 mmol/L (21-32) 04/14/24 BUN 16 mg/dl (6-23) 04/14/24 Creat 0.94 mg/dl (0.6-1.2) 04/14/24 Glucose Level 126 mg/dl (70-99(Fasting)) H 04/14/24 PT 10.6 Seconds (9.0-12.0) 04/14/24 PTT 26 Seconds (21-31) 04/14/24 INR 1.0 (0.9-1.1) 04/14/24 HA1c 7.0 % (4.5-5.6) H 04/14/24 Urine Color Yellow 04/14/24 Urine Appearance Clear (Clear) 04/14/24 Urine pH 5.5 (4.5-7.5) 04/14/24 Urine Specific [place] 1.032 (1.000-1.030) H 04/14/24 Urine Protein Negative (Negative) 04/14/24 Urine Glucose (UA) Negative (Negative) 04/14/24 Urine Ketones Trace (Negative) H 04/14/24 Urine Blood Negative (Negative) 04/14/24 Urine Nitrite Negative (Negative) 04/14/24 Urine Bilirubin Negative (Negative) 04/14/24 Urine Urobilinogen Negative (Negative) 04/14/24 Urine Leukocyte Esterase Negative (Negative) 04/14/24 Blood Type A Negative 04/14/24 Antibody Screen NEGATIVE 04/14/24 Testing Electrocardiogram Date: 04/14/24 NSR at 83bpm. "Normal ECG" Chest X-Ray Date: 04/14/24 FINDINGS: Cardiomediastinal and hilar silhouettes are within normal limits. No pneumothorax, pleural effusion, airspace consolidation or pulmonary edema. Degenerative changes of the shoulders and spine. IMPRESSION: No acute process.
--- NOTE | 2024-05-04 05:28 | History & Physical Bridge Note ---
Date of Service May 04, 2024 History & Physical Bridge Note I have examined the patient, reviewed the History & Physical and in the interval since the performance of the History & Physical I have noted the following changes of clinical significance: consent and site verified.no changes noted
[~2024-05-04 06:25] MED LIST changes: -ALBU18002 INH; -BIOT1CAP8 PO; -DICL1GEL12 EXT; -INSHNI SC; -LIRA18IN SC; -LOSA1TAB38 PO; -LUTE15CA PO; -MAGNESIUM PO; -METF-384 PO; -MULT-506 PO; -NF656 EXT; -OXYC10TA2 PO; -PRLSR20 PO; +ROPIVACAINE 0.5% HCL/PF 246 MG, Ketorolac (*for OR use only*) 30 MG, EPINEPHrine 30MG/3... INFIL SCH; -TAMS0.4C38 PO; -VITAMIN B12 PO; -VITAMIN C PO; -VITAMIN E PO
[2024-05-04] MEDS ORDERED: BUPIVACAINE 0.5 % 5 MG/1 ML PF 10ML VIAL ONE (06:29)
[2024-05-04] MEDS ORDERED: ROPIVACAINE 0.5% 5 MG/ML 30 ML VIAL ONE (06:29)
[2024-05-04] MEDS: LR 500ML BOLUS, THEN 15ML/HR IV SCH (07:00)
[2024-05-04] MEDS: LR 60ML/HR IV SCH (07:00)
[2024-05-04] MEDS ORDERED: fentaNYL citrate PF 100 MCG/2 ML VIAL ONE (07:14)
[2024-05-04] MEDS ORDERED: MIDAZOLAM HCL 1 MG/ML 2ML VIAL ONE (07:15)
[2024-05-04] MEDS ORDERED: ONDANSETRON INJ 2 MG/ML 2 ML VIAL IV PRN (08:21)
[2024-05-04] MEDS ORDERED: ATROPINE SULFATE 0.1 MG/ML 10ML SYR IV PRN (08:21)
[2024-05-04] MEDS ORDERED: ePHEDrine sulfate 50 MG/ML AMP IV PRN (08:21)
[2024-05-04] MEDS: TRANEXAMIC ACID 1,000 MG **IV Pre-op IV SCH (08:41)
[2024-05-04] MEDS: ceFAZolin 3000MG 3,000 MG/72.5 ML BAG IV SCH (09:03)
[2024-05-04] MEDS: ORTHO JOINT ANESTHETIC ONE (09:25)
[2024-05-04] MEDS: ROPIVACAINE 0.5% HCL/PF 246 MG, Ketorolac (*for OR use only*) 30 MG, EPINEPHrine 30MG/3... INFIL SCH (09:25)
[2024-05-04] MEDS ORDERED: PROPOFOL IV EMULSION 10 MG/ML 20 ML VIAL IV ONE ×2 (09:26→10:35)
[2024-05-04] MEDS ORDERED: PHENYLEPHRINE 100MCG/ML 10ML SYR IV ONE (09:26)
[2024-05-04] MEDS ORDERED: ONDANSETRON INJ 2 MG/ML 2 ML VIAL ONE (10:02)
[2024-05-04] MEDS: TRANEXAMIC ACID 1,000 MG **IV Intra-op IV SCH (10:13)
[2024-05-04] MEDS ORDERED: KETOROLAC 30 MG/ML VIAL ONE (10:24)
--- NOTE | 2024-05-04 10:38 | Post Operative Brief Note ---
Immediate Post Op Note Date of Surgery May 04, 2024 Pre & Post Diagnosis Operation Date: 05/04/24 08:50 <No data on this case meets the specified criteria> Pre and postop diagnosis osteoarthritis with valgus alignment left knee postop diagnosis the same I identified the patient and participated in the time-out.: Yes Procedure Operation Date: 05/04/24 08:50 <No data on this case meets the specified criteria> Cemented left total knee replacement with tibial augment stem Surgeon Yao Marr MD Rcp HALEY/Ron Estimated Blood Loss 50 Findings Consistent with Post-Op Diagnosis Tricompartmental disease particularly distal femur with valgus alignment lateral compartment also medial compartment moderate disease patellofemoral joint Fluids See anesthesia report Complications None
--- NOTE | 2024-05-04 10:42 | Operative Report ---
Post Operative Report Pre & Post Diagnosis Operation Date: 05/04/24 08:50 <No data on this case meets the specified criteria> Osteoarthritis left knee with valgus deformity pre and postop diagnosis same I identified the patient and participated in the time-out.: Yes Procedure Operation Date: 05/04/24 08:50 <No data on this case meets the specified criteria> Cemented left total knee replacement with tibial stem augment Surgeon Yao Marr MD Caustic Purification Operator HALEY/Ron Estimated Blood Loss 50 Findings Consistent with Post-Op Diagnosis Severe tibial femoral disease lateral greater than medial patellofemoral moderate Fluids See anesthesia report Specimens Bone pathology Drains None Complications None Indications Severe pain failed conservative management over multiple years Description of Procedure After the patient was appropriate notified site verified consent verified antibiotics confirmed to be given the left lower extremity was prepped and draped in his routine fashion. She had a slight flexion contracture so elected to take 11 mm off the distal femur. Once the tourniquet was inflated total tourniquet time was 56 minutes. A midline approach was utilized parapatellar arthrotomy performed synovectomy completed osteophytes resected. Distal femur entered cruciates resected tibia subluxated menisci resected. Distal femur resected 11 mm. Proximal tibia 4 mm. The extension gap was excellent. Both were sized to roughly a size 6. Once the remaining soft tissue was balanced the distal femur was sized to a 6 and appropriate cutting block applied and the anterior posterior condylar and chamfer cuts made. Flexion gap was checked and was excellent the posterior capsule was injected with Ortho mix. The box cut was made lug holes made in the size 6 fit well. The tibia was then subluxated and used a stem augment so was a revision type rotating platform tray appropriate cutting block applied broaching occurred reaming occurred and then the size 6 with a 6 mm insert posterior cruciate substituting was placed and everything fit well and the knee had excellent motion in flexion extension from 0-100 25 to 30 degrees with no midrange instability. Patella tracked well. The patella was resected leaving roughly 15 mm and a 38 button was seated. Ortho mix was then injected all about the knee all trial elements were then removed the wound soaked in Betadine for 2-1/2 minutes and then irrigated and then the permanent cemented in position tibia femur patella in that order at 12 minutes of tourniquet deflated at 14 minutes t he knee flexed no major bleeding encountered no cement removal required wound was irrigated 1 final time with Pulsavac Betadine permanent liner seated in the knee reduced and closed at 40 degrees of flexion with #2 Vicryl 2-0 Vicryl and standstill clips appropriate dressing was applied patient transferred recovery in satisfactory condition he tolerated the procedure well. DVT prophylax to be per protocol will start that tomorrow. EBL was 50 cc or less crystalloid per anesthesia. Summary of implants ATT UNE femoral system 6 left femur 6 rotating platform revision 6 x 6 rotating platform insert posterior cruciate substituting 38 patella 2 bags of [place] G cement. Family was contacted following surgery and advised of her status and he appreciated the phone call. I attest to the content of the Intraoperative Record and any orders documented therein. Any exceptions are noted below.
--- NOTE | 2024-05-04 10:45 | Discharge Summary ---
Date of Service May 05, 2024 Admission HPI Per Admitting Provider Osteoarthritis left knee Principal Diagnosis Osteoarthritis left knee Discharge Data Allergies Allergy/AdvReac Type Severity Reaction Status Date / Time nitrofurantoin Allergy Unknown Hives Verified 05/04/24 06:56 Vaccinations None Consultations None Procedures Performed Operation Date: 05/04/24 08:50 Actual Procedures p Left Total Knee Arthroplasty(Left) - Yao Marr MD Ordered Studies 05/04/24 05:00 US - OR guided needle placemen Routine Hospital Course (1) Status post left knee replacement: Continue care pathway discharge tomorrow home health Total Time Total Time Spent Total Time Spent (In Minutes): 5 minutes Discharge Plan Discharge Items Reason For Visit: Left Knee Degenerative Joint Disease Discharge Diagnosis: Left knee osteoarthritis Condition on Discharge: Good Activity: Per Instructions section Lifting: Gradually increase as tolerated Bathing: Keep incision dry Sexual Activity: Wait until after follow-up appointment Exercise/Sports: Wait until after follow-up appointment Weightbearing Comment: Full but wear immobilizer for first 48 hours then discontinue Follow-up/Referrals: ProWaqas MD [Primary Care Provider] - Addtl Attending Provider Instructions: DIET: * Resume previous diet. MEDICATIONS: * Please take your prescriptions as instructed at your pre-op appointment and/or see medication discharge instructions listed above. * If concerns develop, call your physician's office at . SPECIAL CARE INSTRUCTIONS: * Ice/Elevate as instructed. * Keep dressing clean, dry, intact. * Your surgical extremity may be discolored due to prepping agents used on the skin. A bluish-green tint is a normal variant and should not cause alarm. Call your doctor at [phone] if: * Temperature above 101 degrees * Pain not relieved by pain medicine ordered * There is increased drainage or redness from any incision * You have any unanswered questions, problems or concerns. FOLLOW UP VISIT: * If not already scheduled, please call the office at to schedule a follow-up appointment. Pending Studies at Discharge: Yes Studies:: Bone pathology Stand-Alone Forms: My [facility] Medications and DC Order Prescriptions: No Action (DME) OneTouch Verio test strips Strip See Rx Instructions .Route Qty: 100 3RF Rx Instructions: As directed- test 1-2x daily (DME) blood-glucose meter [OneTouch Verio Flex meter] Misc See Rx Instructions .Route Qty: 1 0RF Rx Instructions: As directed- to check blood sugar daily (DME) lancets [OneTouch UltraSoft Lancets] Misc See Rx Instructions .Route Qty: 200 3RF Rx Instructions: As directed- test 1-2x daily (DME) Dexcom G7 Desilverizer Misc See Rx Instructions .Route Qty: 1 0RF Rx Instructions: Check glucose atleast 2 times/day. Use per research/program director instruction. rosuvastatin [Crestor] 5 mg tablet 5 mg PO QPM Qty: 90 3RF (DME) pen needle, diabetic [BD Ultra-Fine Devika Pen Needle] 32 gauge x 5/32" needle See Rx Instructions .Route Qty: 100 5RF Rx Instructions: As directed to inject insulin two times a day (DME) Dexcom G7 Sensor Device See Rx Instructions .ROUTE .MEDSUPPLY Qty: 3 6RF Rx Instructions: Check glucose atleast 2x daily. Use per research/program director instruction. Change sensor every 10 days. metformin 1,000 mg tablet 1,000 mg PO BID Qty: 180 3RF Prelief 65 mg tablet 65 mg PO QID PRN (Reason: UTI issues) betamethasone dipropionate 0.05 % cream 1 applic topical DAILY PRN (Reason: skin irritation) Qty: 15 0RF albuterol sulfate 90 mcg/actuation HFA aerosol inhaler 1 - 2 puff inhalation Q4H PRN (Reason: shortness of breath) Qty: 6.7 2RF (DME) OneTouch Verio test strips Strip See Rx Instructions .Route Qty: 100 0RF Rx Instructions: TEST TWICE DAILY Novolin 70-30 FlexPen U-100 100 unit/mL (70-30) insulin pen 25 - 27 unit subcut BID Rx Instructions: before breakfast and dinner as directed; OK to adjust as previously educated cholecalciferol (vitamin D3) 25 mcg (1,000 unit) capsule 25 mcg PO QAM diclofenac sodium 1 % gel 4 gm TOP QID PRN (Reason: pain) diphenhydramine HCl 25 mg capsule 25 mg PO TID PRN (Reason: HIVES) hydrocortisone-iodoquinol 1-1 % cream 1 appln TOP TID PRN (Reason: yeast infections) Patient Comments: FOR TOPICAL YEAST INFECTIONS nystatin 100,000 unit/gram powder 1 applic topical DAILY PRN (Reason: RASH) econazole 1 % cream 1 applic topical DAILY PRN (Reason: Rash) oxycodone-acetaminophen [Percocet] 5-325 mg Tablet 1 tab PO Q6H PRN (Reason: Pain) tamsulosin [Flomax] 0.4 mg capsule 0.4 mg PO QPM PRN (Reason: urinary issues) Rx Instructions: Take one capsule at bedtime. losartan-hydrochlorothiazide 100-12.5 mg tablet 1 tab PO QPM Trulicity 1.5 mg/0.5 mL pen injector 1.5 mg subcut Q7D Patient Comments: wednesdays calcium 600 mg Capsule 600 mg PO DAILY cyanocobalamin (vitamin B-12) [Vitamin B-12] 1,000 mcg Tablet 1,000 mcg PO DAILY lutein 6 mg Capsule 6 mg PO DAILY Rx Instructions: give with meal/snack Glucosamine Chondroitin 550-30-1 mg Capsule 1 cap PO DAILY Mounjaro 5 mg/0.5 mL pen injector 5 mg subcut .weekly Admission Data Admit Date/Time: 05/04/24 11:02 Attending Provider: Yao Marr Admit Provider: Yao Marr Primary Care Provider: Waqas Doshi Other Providers: [facility],Home Healthcare
--- NOTE | 2024-05-04 10:55 | Operative Report ---
Post Operative Report Pre & Post Diagnosis Operation Date: 05/04/24 08:50 Pre-Op Diagnosis: Left Knee Degenerative Joint Disease Post-Op Diagnosis: Left Knee Degenerative Joint Disease I identified the patient and participated in the time-out.: Yes Procedure Operation Date: 05/04/24 08:50 Actual Procedures p Left Total Knee Arthroplasty(Left) - Yao Marr MD Surgeon Yao Marr MD Revenue Agent HALEY/Ron Estimated Blood Loss 50 Findings Consistent with Post-Op Diagnosis Same as postoperative diagnosis. Specimens The resected portions of the distal femur and tibia. Description of Procedure Please see detailed operative note. I attest to the content of the Intraoperative Record and any orders documented therein. Any exceptions are noted below.
--- NOTE | 2024-05-04 11:07 | Operative Report ---
Post Operative Report Pre & Post Diagnosis Operation Date: 05/04/24 08:50 Pre-Op Diagnosis: Left Knee Degenerative Joint Disease Post-Op Diagnosis: Left Knee Degenerative Joint Disease I identified the patient and participated in the time-out.: Yes Procedure Operation Date: 05/04/24 08:50 Actual Procedures p Left Total Knee Arthroplasty(Left) - Yao Marr MD Surgeon ROBERT Marr MD Creative Services Intern HALEY/Ron VALADEZ Estimated Blood Loss 50 Findings Consistent with Post-Op Diagnosis see operative report Specimens see operative report Drains none Complications none Disposition Accompanied Patient To Recovery: Yes Indications This 69 year old female presented to the office with complaints of persisting left knee pain. She had tried conservative care measures, including injection therapy, without improvement. She elected to proceed with surgical intervention after being educated about potential risks and outcomes. Preoperative imaging was obtained. Description of Procedure The patient was administered a spinal anesthetic and then taken to the operating room where she was given sedation. She was prepped and draped in the usual sterile fashion. Please see Dr. Marr's operative report for specifics of the procedure. I was present for the entire case from initial patient positioning through final wound closure. Assistance was provided in tissue retraction, hemostasis, trial implant placement, final implant placement, and final wound closure. The patient was taken to the recovery room in satisfactory condition. I attest to the content of the Intraoperative Record and any orders documented therein. Any exceptions are noted below.
--- NOTE | 2024-05-04 11:10 | Orthopedic Progress Note ---
Date of Service May 04, 2024 Orthopedic Progress Note Patient is awake and alert in recovery room. Denies chest pain shortness of breath fever chills nausea vomiting or headache. Vital signs are stable she is afebrile. Postop x-rays look excellent. Neurovascular check limited by spinal. Wound dressing clean dry and intact. Assessment doing well continue care pathway. Begin anticoagulation tomorrow. Home services to be arranged with case management today.
[2024-05-04] MEDS: fentaNYL citrate PF 100 MCG/2 ML VIAL IV PRN (11:15)
--- NOTE | 2024-05-04 11:22 | XRay Report ---
XR knee LT 1 or 2V routine CLINICAL HISTORY: S/P L TKA TECHNIQUE: 2 views of the left knee were obtained. Comparison: Comparison is made to left knee radiographs 02/29/2024 FINDINGS: Patient is status post total knee arthroplasty with expected postsurgical changes including soft tiss ue swelling and subcutaneous emphysema. No periarticular lucency or hardware fracture is seen. IMPRESSION: Expected postoperative appearance status post placement of total knee arthroplasty. ACT 112: Negative or not required by law. Electronically signed by: Sina Fuentes M.D. 05/04/2024 11:21 AM
--- NOTE | 2024-05-04 11:49 | Anesthesiology Progress Note ---
Date of Service May 04, 2024 Anesthesia Post Procedure Vital Signs Vital Signs: Temp Pulse Resp BP Pulse Ox O2 Del Method O2 Flow Rate 05/04/24 11:40 97.7 F 66 17 139/76 96 Room Air 05/04/24 11:30 69 14 135/68 100 Room Air 05/04/24 11:20 75 13 112/65 100 Room Air 05/04/24 11:10 77 14 130/64 100 Room Air 05/04/24 11:00 80 15 130/81 100 Oxymask 6 05/04/24 10:52 97.0 F L 80 13 115/68 100 Oxymask 6 05/04/24 06:54 98.2 F 92 H 20 140/67 100 Room Air Pain Intensity Left Knee: Pain Intensity: 8 Right Foot: Pain Intensity: 4 Transfer of Care Handoff Completed per policy Notes Mental Status: alert / awake / arousable and participated in evaluation Patient Amnestic to Procedure: Yes Nausea / Vomiting: adequately controlled Pain: adequately controlled Airway Patency, RR, SpO2: stable & adequate BP & HR: stable & adequate Hydration State: stable & adequate Neuraxial Anesthesia: was administered and sensory block is resolving Anesthetic Complications: no major complications apparent and Pt Satisfied with anesthetic care
[2024-05-04] MEDS ORDERED: bisacodyL 10 MG SUPP PR PRN (12:15)
[2024-05-04] MEDS ORDERED: PHARMACY GLYCEMIC MGMT CONSULT PRN (12:15)
[2024-05-04] MEDS ORDERED: METOCLOPRAMIDE HCL INJ 5 MG/ML 2 ML VIAL IV PRN (12:15)
[2024-05-04] MEDS ORDERED: TAMSULOSIN HCL 0.4 MG CAP PO PRN (12:15)
[2024-05-04] MEDS ORDERED: NYSTATIN POWDER 15GM BTL EXT PRN (12:15)
[2024-05-04] MEDS ORDERED: ALUMINUM/MAGNESIUM SUSP 30 ML UDC PO PRN (12:15)
[2024-05-04] MEDS ORDERED: diphenhydrAMINE 50 MG/ML VIAL IV PRN (12:15)
[2024-05-04] MEDS ORDERED: NON-FORMULARY MEDICATION (Blood-Glucose Sensor [Dexcom G7 Sensor] device) SCH (12:15)
[2024-05-04] MEDS ORDERED: HYDROCORTISONE TOP PRN (12:15)
[2024-05-04] MEDS ORDERED: IODOQUINOL TOP PRN (12:15)
[2024-05-04] MEDS ORDERED: ALBUTEROL HFA 8 GM INHALER INH PRN (12:15)
[2024-05-04] MEDS ORDERED: NALOXONE HCL 0.4 MG/1 ML VIAL/CARP IV PRN (12:15)
[2024-05-04] MEDS ORDERED: MAGNESIUM HYDROXIDE SUSP 30 ML UDC PO PRN (12:15)
[2024-05-04] MEDS ORDERED: ECONAZOLE NITRATE 1% CRM 15 GM TUBE TOP PRN (12:15)
[2024-05-04] MEDS ORDERED: HYDROmorphone INJ 0.5 MG/0.5 ML SYR IV PRN (12:15)
[2024-05-04] MEDS ORDERED: DEXTROSE 50% 50 ML SYRINGE IV PRN (13:15)
[2024-05-04] MEDS: SODIUM CHLORIDE 0.9% 1,000 ML IV SCH (13:15)
[2024-05-04] MEDS ORDERED: GLUCOSE 10 TAB/TUBE PO PRN (13:15)
[2024-05-04] MEDS ORDERED: CARBOHYDRATES FOR HYPOGLYCEMIA PO PRN (13:15)
[2024-05-04] MEDS ORDERED: GLUCOSE 40% GEL 15 GM TUBE PO PRN (13:15)
[2024-05-04] MEDS ORDERED: GLUCAGON FOR INJ 1 MG VIAL IM PRN (13:15)
--- NOTE | 2024-05-04 13:19 | Pharmacy Report ---
Pharmacy Glycemic Short Note 2 - Date of Service May 04, 2024 - Glycemic Short BSG Results (Last 24 hours): 05/04/24 05/04/24 05/04/24 06:53 10:57 12:45 POC Glucose 121 H 157 H 149 H OUTPATIENT ANTIDIABETIC REGIMEN: * Novolin 70/30 - 25-27 units BID with breakfast and dinner * Trulicity 1.5mg SQ Weekly * Metformin 1000mg PO BID ASSESSMENT: * 69 you F, s/p L TKA, no steroids received or ordered. * Outpatient regimen is premixed basal/prandial insulin of Novolin 70/30 mix insulin. * Pre-mixed insulin is difficult to titrate since it is already in a fixed distribution of basal:prandial insulin. Continuing pre-mixed insulin for admission typically lead to hypoglycemia d/t changing PO status but rapid acting insulin is unable to be held. * Home regimen will be held for admission per pharmacy consult. Will utilize recommended regimen of SQ basal bolus insulin regimen with Lantus + NovoLog (CF+CR) PLAN FOR INPATIENT GLYCEMIC CONTROL: * Hold outpatient oral diabetes medications * Basal insulin * Lantus 20 units SQ x 1 dose now, further dosing tomorrow, keeping in mind transition back to mixed insulin on discharge * Bolus insulin * NovoLog per scale ACHS or Q6hrs while NPO * Goal Range: Low 110 mg/dL - High 140 mg/dL * Correction Factor: 30 mg/dL/unit * Nutritional / Prandial insulin per carb ratio of 1 unit per 10 grams CHO consumed
[2024-05-04] MEDS: KETOROLAC TROMETHAMINE 15 MG/ML VIAL IV SCH (13:20)
[2024-05-04] MEDS ORDERED: BETAMETHASONE DIP AUG (DIPROLENE) 0.05% CR 15 GM TUBE EXT PRN (13:29)
[2024-05-04] MEDS: LANTUS PER UNIT CHARGE SC ONE (13:30)
[2024-05-04] MEDS: INSULIN ASPART PER UNIT CHARGE SC SCH (13:30)
--- NOTE | 2024-05-04 13:41 | Orthopedic Progress Note ---
Date of Service May 04, 2024 Assessment & Plan Admission and Anticipated Discharge Date Admission Date: May 04, 2024 Orthopedic Progress Note Postop check status post left total knee replacement. Patient initially has some issues with her right leg having some shooting pain as she was waking up out of the spinal. Presently rating is good. She denies any pain. She denies chest pain shortness of breath fever chills nausea vomiting or headache. She did have a little nausea earlier but that is gone and she ate lunch well. Her IV fluid has been saline lock. Exam today today presently reveals intact femoral sciatic nerve function good motor and sensory function bilaterally with left sided wound dressing clean dry and intact. Postop x-rays look excellent. Assessment doing well status post a left total knee replacement. There appears to be no residual ill effects from the spinal complaints she had is now gone. Her motor and sensory function is normal bilaterally. She has no further nausea she is eating and drinking well. Plan is to saline lock IV mobilize with knee immobilizer for ambulation only. Can remove the immobilizer for bed rest being seated in chair and doing all of her exercises. Its only to be worn when she is up ambulating for the next 48 hours. DVT PE prophylaxis to start tomorrow.
[2024-05-04] MEDS: oxyCODONE HCL IR 5 MG TAB (IMMEDIATE RELEASE) PO PRN (15:37)
[2024-05-04] MEDS: FERROUS GLUCONATE 324 MG TAB PO SCH (17:06)
[2024-05-04] MEDS: ASCORBIC ACID 500 MG TAB PO SCH (17:06)
[2024-05-04] MEDS: ceFAZolin 2000MG 2,000 MG/15 ML SYR IV SCH (17:42)
[2024-05-04] MEDS: ONDANSETRON INJ 2 MG/ML 2 ML VIAL IV PRN (17:58)
[2024-05-04] MEDS: SENNA 8.6 MG TAB PO SCH (19:36)
[2024-05-04] MEDS: ROSUVASTATIN CALCIUM 5 MG TAB PO SCH (19:36)
[2024-05-04] MEDS: LOSARTAN POTASSIUM 50 MG TAB PO SCH (19:37)
[2024-05-04] MEDS: ACETAMINOPHEN 500 MG TAB PO SCH (19:37)
[2024-05-04] MEDS: hydroCHLOROthiazide 25 MG TAB PO SCH (19:38)
[2024-05-04] MEDS: DOCUSATE SODIUM 100 MG CAP PO SCH (19:38)
--- NOTE | 2024-05-05 05:58 | Orthopedic Progress Note ---
Date of Service May 05, 2024 Assessment & Plan Admission and Anticipated Discharge Date Admission Date: May 04, 2024 Orthopedic Progress Note Postop day #1 status post left total knee replacement. She is doing well denies any chest pain shortness of breath fever chills nausea vomiting or headache. Vital signs are stable she is afebrile. Neurovascular check femoral sciatic nerve is normal. Has some tourniquet pain really does not have much knee pain has some low back pain which is her history she gets injected there. Neuro again neurologic exam both lower extremities normal. Calves nontender. Wound dressing clean dry and intact. Can do a straight leg raise. Flexes easily to 50 degrees. Assessment doing well plan is to discharge after PT OT today. Initiate anticoagulation today. Follow-up in the office in 2 weeks. Case management to finalize home services.
[2024-05-05 06:26] LABS: Hematocrit (blood only) 28.8 % (37.0-47.0); Hemoglobin 9.4 g/dl (12.0-16.0); Mean Corpuscular Hemoglobin 31.6 pg (25.0-34.0); Mean Corpuscular Hgb Conc 32.6 g/dL (32.0-36.0); Platelet Count 173 K/uL (130-400); RDW Coefficient of Variation 12.5 % (11.5-14.5); RDW Standard Deviation 43.9 fL (36.4-46.3); Red Blood Count 2.97 M/uL (4.20-5.40)
[2024-05-05 06:32] LABS: Anion Gap 4 (3-11); BUN Creatinine Ratio 21.9 (10-20); Blood Urea Nitrogen 21 mg/dl (6-23); Calcium 8.2 mg/dl (8.6-10.3); Carbon Dioxide 29 mmol/L (21-32); Chloride 106 mmol/L (98-107); Creatinine Clr Calc Pharmacy 82.3 ml/min; Est GFR (African American) 69.9 ml/min; Est GFR (Non-African American) 60.3 ml/min; Glucose 177 mg/dl (70-99(Fasting)); Sodium 139 mmol/L (136-145)
[2024-05-05] MEDS: LANTUS PER UNIT CHARGE SC ONE (08:01)
[2024-05-05] MEDS: MULTIVITAMIN TAB PO SCH (08:08)
[2024-05-05] MEDS ORDERED: NON-FORMULARY MEDICATION (Blood-Glucose Meter,Continuous [Dexcom G7 Receiver] misc) SCH (09:00)
[2024-05-05] MEDS: APIXABAN 2.5 MG TAB PO SCH (09:02)
--- NOTE | 2024-05-05 09:06 | Orthopedic Progress Note ---
Date of Service May 05, 2024 Assessment & Plan (1) Status post left knee replacement: Plan: The patient was educated regarding today's findings. Her dressing was changed today by me. New compression dressing along with BREANNE stocking was applied. She will leave this in place until Thursday. It can be changed by home health at that point. Continue with ice, elevation, and gentle motion. She will use the knee immobilizer when out of bed today and tomorrow. It can be discontinued entirely on Thursday morning. Her Eliquis was started this morning. Continue 2.5 mg twice daily for 4 weeks. Prescription for Eliquis and Percocet was sent to her pharmacy. Continue using her walker for ambulation. Written discharge instructions were provided. Call the office with any other concerns. Admission and Anticipated Discharge Date Admission Date: May 04, 2024 Subjective This 69 year old female is seen today in her room. She is 1 day status post left knee total knee arthroplasty. She states she did fine overnight. She slept well. She denies any chest pain, shortness of breath, nausea, vomiting, or abdominal pain. She feels ready for discharge to home. She has been out of bed and has ambulated to the bathroom. She states her bowels are moving. She has not participated in physical therapy or occupational therapy yet. She had breakfast without difficulty. No additional complaints. Review of Systems Review of Systems: Unchanged from yesterday. Physical Exam Physical Exam: General: Well-developed, well-nourished, middle-aged female, in no acute distress. Sitting in her bedside chair. Alert and oriented. She has finished her breakfast. Skin: Warm and dry with good turgor. No rashes. Postsurgical dressing is in place on the left leg. Upon removal, there is scant dried blood on her most inner dressings. She has no active bleeding. [place] are in place. Wound edges well-approximated. No erythema or warmth. No ecchymosis. Minimal postsurgical edema. Musculoskeletal: Patient has intact motor function of her toes, ankle, knee, and hip. She is able to perform straight leg raise. She has full terminal extension. Flexion to greater than 60 degrees. Strength is 5/5 for resisted flexion and extension of the knee. Neurologic: Gross sensation is intact across the left leg by soft touch. Peripheral pulses are 2+. Results & Data Vital Signs (Past 12 Hours) Vital Signs Temp Pulse Resp BP BP Pulse Ox O2 Del Method 05/05/24 07:41 37 C 88 16 101/64 99 Room Air 05/05/24 03:09 113/67 05/05/24 03:07 36.9 C 74 18 158/119 H 100 Room Air 05/04/24 23:01 36.9 C 70 18 122/75 99 Room Air Laboratory Results CBC obtained this morning shows a white count of 7.6. H&H of 9.4 and 28.8. Platelets 173,000. PRP obtained this morning is unremarkable. Potassium is pending. Sodium 139. Anion gap of 4. BUN of 21 with creatinine 0.96. Glucose this morning was 177.
== END 2024-05-05 11:21 | disposition home health service (06) ==
LOC: ASU 06:25 → 3E 06:25